=== PATIENT | female | born 1960 | race Caucasian/White ===

== ENCOUNTER 2016-05-09 19:44 | Inpatient (IN) | payer MEDICAID ==
[~2016-05-09] VITALS: Ht 157.5 cm; Wt 143.8 kg
[~2016-05-09 19:44] MED LIST: CLON2TAB4 PO; CLOT15CR35 TP; Hydrochlorothiazide PO; INSU100V28 SQ; LEVO750T21 PO; NPH,100V2 SQ; VALS40TA4 PO; VENL75TA4 PO
[2016-05-09] MEDS ORDERED: PIPERACILLIN /TAZOBACTAM 3.375 G VIAL IV ONE (23:50)
[2016-05-09] MEDS ORDERED: VANCOMYCIN 1 GM VIAL ONE (23:50)
[2016-05-09] MEDS ORDERED: IV SET PRIMARY PUMP SET 1 EA INFUS.SET MC ONE (23:51)
[2016-05-09] MEDS ORDERED: IV D5W 50 ML IV ONE (23:51)
[2016-05-09] MEDS ORDERED: IV D5W 250 ML IV ONE (23:51)
[2016-05-09] MEDS ORDERED: LORAZEPAM INJ 2 MG/ML VIAL ONE (23:52)
[2016-05-10] MEDS ORDERED: PIPERACILLIN /TAZOBACTAM 3.375 G in IV D5W 50 ML IV ONE ×2
[2016-05-10] MEDS ORDERED: LORAZEPAM INJ 2 MG/ML VIAL IV ONE
[2016-05-10] MEDS ORDERED: VANCOMYCIN 1 GM in IV D5W 250 ML IV ONE ×2
[2016-05-10 00:32] LABS: CALCIUM, SERUM 8.6 mg/dL (8.5-10.1); CREATININE 1.5 mg/dL (0.6-1.3); POTASSIUM 4.8 mmol/L (3.5-5.1)
[2016-05-10 00:36] LABS: BASOPHILS # (AUTO) 0.1 /CMM (0.0-0.2); BASOPHILS % (AUTO) 0.5 % (0.0-2.0); DIFF TOTAL % 100 %; EOSINOPHILS # (AUTO) 0.5 /CMM (0.0-0.7); EOSINOPHILS % (AUTO) 3.9 % (0.0-6.0); HEMATOCRIT 31 % (33-45); HEMOGLOBIN 10.3 g/dL (11.5-14.8); LYMPHOCYTES # (AUTO) 2.8 /CMM (0.8-4.8); LYMPHOCYTES % (AUTO) 23.3 % (20.0-44.0); MEAN CORPUSCULAR HEMOGLOBIN 28 PG (26.0-33.0); MEAN CORPUSCULAR HGB CONC 33 g/dl (31.0-36.0); MEAN CORPUSCULAR VOLUME 86 fL (82-100); MONOCYTES # (AUTO) 0.7 /CMM (0.1-1.30); MONOCYTES % (AUTO) 5.9 % (2.0-12.0); NEUTROPHILS # (AUTO) 7.9 /CMM (1.8-8.9); NEUTROPHILS % (AUTO) 66.4 % (43.0-81.0); PLATELET COUNT (AUTO) 385 /CMM (150-450); RED BLOOD CELL COUNT(AUTO) 3.62 MIL/uL (4.0-5.2); WHITE BLOOD COUNT (AUTO) 11.9 K/uL (4.3-11.0)
[2016-05-10] MEDS ORDERED: IV NS 0.9% 1,000 ML BAG IV ONE (01:00)
[2016-05-10] MEDS ORDERED: LEVOFLOXACIN 750 MG /D5W 150ML 750 MG in PREMIX 1 EA IV SCH (01:00)
[2016-05-10] MEDS ORDERED: IV NS 0.9% 1,000 ML IV PRN (01:13)
[2016-05-10] MEDS ORDERED: DEXTROSE 50%-WATER 50 ML DISP.SYRIN IV PRN (01:30)
[2016-05-10] MEDS ORDERED: ENOXAPARIN SODIUM 40 MG/0.4 ML DISP.SYRIN SQ SCH (01:30)
[2016-05-10] MEDS ORDERED: ZOLPIDEM TARTRATE 5 MG TABLET PO PRN (01:30)
[2016-05-10] MEDS ORDERED: MAGNESIUM HYDROXIDE 30 ML UDC PO PRN (01:30)
[2016-05-10] MEDS ORDERED: ONDANSETRON HCL/PF 4 MG/2 ML VIAL IVP PRN (01:30)
[2016-05-10] MEDS ORDERED: ACETAMINOPHEN 325 MG TABLET PO PRN (01:30)
[2016-05-10] MEDS ORDERED: HYDROCODONE/APAP 5/325MG 1 EACH TABLET PO PRN (01:30)
[2016-05-10] MEDS ORDERED: MORPHINE SULFATE INJ 2 MG/ML DISP.SYRIN IV PRN (01:30)
[2016-05-10] MEDS ORDERED: Z GUARD REMEDY 2 OZ OINT TP PRN (01:30)
[2016-05-10] MEDS ORDERED: MAG HYDROX/AL HYDROX/SIMETH 30 ML UDC PO PRN (01:30)
[2016-05-10 01:31] VITALS: BP 106/44
[2016-05-10] MEDS ORDERED: ENOXAPARIN SODIUM 40 MG/0.4 ML DISP.SYRIN SQ ONE (01:36)
[2016-05-10] MEDS: BLOOD SUGAR DIAGNOSTIC 1 EACH STRIP VI SCH ×4 (05:27→22:12)
[2016-05-10 08:00] VITALS: BP_SYST 143; BP_SYST 154; BP_DIAS 62; BP_DIAS 87
[2016-05-10] MEDS ORDERED: INSULIN REGULAR, HUMAN 100 UNIT/ML 3 ML VIAL SQ SCH ×2 (08:00→18:00)
[2016-05-10] MEDS ORDERED: HYDROGEL DRESSING 90 GM TUBE TP PRN (08:30)
[2016-05-10] MEDS ORDERED: FEE PK DOSING 1 MIN EA MC ONE (09:14)
[2016-05-10] MEDS: VALSARTAN 40 MG TABLET PO SCH (09:32)
[2016-05-10] MEDS: PANTOPRAZOLE 40 MG TABLET.DR PO SCH (09:32)
[2016-05-10] MEDS: clonazePAM 0.5 MG TABLET PO SCH ×3 (09:36→16:37)
[2016-05-10] MEDS: CLOTRIMAZOLE 1% 15 GM TUBE TP SCH ×2 (09:37→16:45)
[2016-05-10] MEDS: VENLAFAXINE 37.5 MG TABLET PO SCH ×2 (09:37→16:37)
[2016-05-10] MEDS: HYDROGEL DRESSING 90 GM TUBE TP SCH (09:37)
[2016-05-10] MEDS: CADEXOMER IODINE 40 GM TUBE TP SCH (09:37)
[2016-05-10] MEDS: INSULIN NPH, HUMAN ISOPHANE 100 UNIT/ML VIAL SQ SCH ×2 (09:47→16:49)
[2016-05-10 10:00] VITALS: BP 143/62
[2016-05-10] MEDS: INSULIN REGULAR, HUMAN 100 UNIT/ML 3 ML VIAL SQ PRN (12:11)
[2016-05-10] MEDS ORDERED: FLU VACC QS 2016-17(36MOS+)/PF 0.5 ML DISP.SYRIN IM ONE (14:30)
[2016-05-10 16:00] VITALS: BP 147/64
[2016-05-10 19:26] LABS: KETONES,URINE NEGATIVE (NEGATIVE); LEUKOCYTE ESTERASE ,URINE NEGATIVE (NEGATIVE)
[2016-05-10 19:29] LABS: ADD UA MICROSCOPIC YES
[2016-05-10 19:35] LABS: CREATININE, URINE 60.4 MG/DL (30.0-125.0)
[2016-05-10 20:00] VITALS: BP 123/57
[2016-05-10 20:15] LABS: ADD URINE CULTURE NO; WBC,URINE 0-2 /HPF (0-3)
[2016-05-10] MEDS ORDERED: LEVOFLOXACIN (500MG) 500 MG TABLET PO SCH (20:30)
[2016-05-10] MEDS ORDERED: LEVOFLOXACIN (500MG) 500 MG TABLET PO ONE (21:00)
[2016-05-10] MEDS: METRONIDAZOLE 500 MG TABLET PO SCH (21:16)
[2016-05-10] MEDS: ENOXAPARIN SODIUM 40 MG/0.4 ML DISP.SYRIN SQ SCH (21:17)
[2016-05-10] MEDS: *INSULIN REGULAR(HUMULIN R)HUM 100 UNIT/ML VIAL SQ PRN (22:37)
[2016-05-10] MEDS: VANCOMYCIN 1.25 GM in IV D5W 500 ML IV SCH (23:41)
[2016-05-10] MEDS ORDERED: SECONDARY IV SET 1 EA INFUS.SET MC ONE (23:48)
[2016-05-11] MEDS: METRONIDAZOLE 500 MG TABLET PO SCH ×3 (04:35→21:05)
[2016-05-11] MEDS: BLOOD SUGAR DIAGNOSTIC 1 EACH STRIP VI SCH ×4 (06:55→21:15)
[2016-05-11 07:23] LABS: BASOPHILS # (AUTO) 0.1 /CMM (0.0-0.2); BASOPHILS % (AUTO) 0.5 % (0.0-2.0); DIFF TOTAL % 100 %; EOSINOPHILS # (AUTO) 0.5 /CMM (0.0-0.7); EOSINOPHILS % (AUTO) 4.8 % (0.0-6.0); HEMATOCRIT 27 % (33-45); HEMOGLOBIN 8.9 g/dL (11.5-14.8); LYMPHOCYTES # (AUTO) 2.5 /CMM (0.8-4.8); LYMPHOCYTES % (AUTO) 25.2 % (20.0-44.0); MEAN CORPUSCULAR HEMOGLOBIN 29 PG (26.0-33.0); MEAN CORPUSCULAR HGB CONC 33 g/dl (31.0-36.0); MEAN CORPUSCULAR VOLUME 86 fL (82-100); MONOCYTES # (AUTO) 0.6 /CMM (0.1-1.30); MONOCYTES % (AUTO) 6.2 % (2.0-12.0); NEUTROPHILS # (AUTO) 6.2 /CMM (1.8-8.9); NEUTROPHILS % (AUTO) 63.3 % (43.0-81.0); PLATELET COUNT (AUTO) 324 /CMM (150-450); RED BLOOD CELL COUNT(AUTO) 3.08 MIL/uL (4.0-5.2); WHITE BLOOD COUNT (AUTO) 9.8 K/uL (4.3-11.0)
[2016-05-11 07:30] LABS: ALBUMIN 1.9 g/dL (3.4-5.0); BILIRUBIN,TOTAL 0.2 mg/dL (0.2-1.0); CALCIUM, SERUM 8.1 mg/dL (8.5-10.1); CREATININE 1.6 mg/dL (0.6-1.3); PHOSPHORUS 5.2 mg/dL (2.5-4.9); POTASSIUM 4.8 mmol/L (3.5-5.1); TOTAL PROTEIN, SERUM 6.2 g/dL (6.4-8.2)
[2016-05-11 08:00] VITALS: BP_SYST 140; BP_SYST 175; BP_DIAS 52; BP_DIAS 76
[2016-05-11] MEDS: clonazePAM 0.5 MG TABLET PO SCH ×2 (08:24→12:00)
[2016-05-11] MEDS: ACIDOPHILUS/BULGARICUS 1 EACH TAB.CHEW PO SCH ×3 (08:25→18:02)
[2016-05-11] MEDS: PANTOPRAZOLE 40 MG TABLET.DR PO SCH (08:25)
[2016-05-11] MEDS: VALSARTAN 40 MG TABLET PO SCH (08:25)
[2016-05-11] MEDS: HYDROCHLOROTHIAZIDE 25 MG TABLET PO SCH (08:25)
[2016-05-11] MEDS: CADEXOMER IODINE 40 GM TUBE TP SCH (08:25)
[2016-05-11] MEDS: HYDROGEL DRESSING 90 GM TUBE TP SCH (08:25)
[2016-05-11] MEDS: VENLAFAXINE 37.5 MG TABLET PO SCH ×2 (08:25→18:02)
[2016-05-11] MEDS: CLOTRIMAZOLE 1% 15 GM TUBE TP SCH ×2 (08:26→18:02)
[2016-05-11] MEDS: INSULIN NPH, HUMAN ISOPHANE 100 UNIT/ML VIAL SQ SCH ×3 (08:33→18:12)
[2016-05-11 10:00] VITALS: BP 175/76
[2016-05-11] MEDS: INSULIN REGULAR, HUMAN 100 UNIT/ML 3 ML VIAL SQ PRN (12:22)
[2016-05-11 16:00] VITALS: BP 165/78
[2016-05-11 20:00] VITALS: BP 155/73
[2016-05-11] MEDS: MUPIROCIN OINT 2% 22 GM TUBE SCH (21:00)
[2016-05-11] MEDS: LEVOFLOXACIN (250MG) 250 MG TABLET PO SCH (21:05)
[2016-05-11] MEDS: ENOXAPARIN SODIUM 40 MG/0.4 ML DISP.SYRIN SQ SCH (21:14)
[2016-05-11] MEDS: *INSULIN REGULAR(HUMULIN R)HUM 100 UNIT/ML VIAL SQ PRN (21:26)
[2016-05-12] MEDS: VANCOMYCIN 1.25 GM in IV D5W 500 ML IV SCH (00:07)
[2016-05-12 01:11] VITALS: BP 155/73
[2016-05-12] MEDS: METRONIDAZOLE 500 MG TABLET PO SCH ×3 (05:10→21:09)
[2016-05-12 06:19] LABS: CALCIUM, SERUM 8.3 mg/dL (8.5-10.1); CREATININE 1.7 mg/dL (0.6-1.3); POTASSIUM 4.9 mmol/L (3.5-5.1)
[2016-05-12] MEDS: PANTOPRAZOLE 40 MG TABLET.DR PO SCH ×2 (07:29→09:18)
[2016-05-12] MEDS: BLOOD SUGAR DIAGNOSTIC 1 EACH STRIP VI SCH ×4 (07:43→21:16)
[2016-05-12 08:00] VITALS: BP 148/59
[2016-05-12] MEDS: MUPIROCIN OINT 2% 22 GM TUBE SCH ×3 (09:00→21:09)
[2016-05-12] MEDS: VALSARTAN 40 MG TABLET PO SCH ×2 (09:00→17:51)
[2016-05-12] MEDS: ACIDOPHILUS/BULGARICUS 1 EACH TAB.CHEW PO SCH ×3 (09:18→17:51)
[2016-05-12] MEDS: HYDROCHLOROTHIAZIDE 25 MG TABLET PO SCH (09:18)
[2016-05-12] MEDS: VENLAFAXINE 37.5 MG TABLET PO SCH ×2 (09:18→17:51)
[2016-05-12] MEDS: HYDROGEL DRESSING 90 GM TUBE TP SCH (09:22)
[2016-05-12] MEDS: CLOTRIMAZOLE 1% 15 GM TUBE TP SCH ×2 (09:22→17:52)
[2016-05-12] MEDS: CADEXOMER IODINE 40 GM TUBE TP SCH (09:22)
[2016-05-12 11:34] LABS: *SPE ALBUMIN 2.1 g/dL (2.9-4.4)
[2016-05-12] MEDS: INSULIN REGULAR, HUMAN 100 UNIT/ML 3 ML VIAL SQ PRN (12:47)
[2016-05-12] MEDS: INSULIN NPH, HUMAN ISOPHANE 100 UNIT/ML VIAL SQ SCH ×2 (12:55→21:54)
[2016-05-12 16:00] VITALS: BP 148/61
[2016-05-12 16:13] LABS: PTH, INTACT 55 pg/mL (15-65)
[2016-05-12 20:00] VITALS: BP 123/63
[2016-05-12 20:15] VITALS: BP 123/63
[2016-05-12] MEDS: LEVOFLOXACIN (250MG) 250 MG TABLET PO SCH (21:09)
[2016-05-12] MEDS: ENOXAPARIN SODIUM 40 MG/0.4 ML DISP.SYRIN SQ SCH (21:15)
[2016-05-12] MEDS: *INSULIN REGULAR(HUMULIN R)HUM 100 UNIT/ML VIAL SQ PRN (21:21)
[2016-05-13] MEDS: VANCOMYCIN 1.25 GM in IV D5W 500 ML IV SCH (01:49)
[2016-05-13] MEDS: METRONIDAZOLE 500 MG TABLET PO SCH ×3 (04:49→21:18)
[2016-05-13 06:54] LABS: CALCIUM, SERUM 8.3 mg/dL (8.5-10.1); CREATININE 1.6 mg/dL (0.6-1.3); POTASSIUM 4.3 mmol/L (3.5-5.1)
[2016-05-13 08:00] VITALS: BP 123/56
[2016-05-13] MEDS: BLOOD SUGAR DIAGNOSTIC 1 EACH STRIP VI SCH ×4 (08:11→21:16)
[2016-05-13] MEDS: VENLAFAXINE 37.5 MG TABLET PO SCH ×2 (08:11→17:11)
[2016-05-13] MEDS: ACIDOPHILUS/BULGARICUS 1 EACH TAB.CHEW PO SCH ×3 (08:12→17:11)
[2016-05-13] MEDS: VALSARTAN 40 MG TABLET PO SCH (08:12)
[2016-05-13] MEDS: HYDROCHLOROTHIAZIDE 25 MG TABLET PO SCH (08:13)
[2016-05-13] MEDS: INSULIN NPH, HUMAN ISOPHANE 100 UNIT/ML VIAL SQ SCH ×2 (08:17→17:15)
[2016-05-13] MEDS: CLOTRIMAZOLE 1% 15 GM TUBE TP SCH ×2 (08:21→17:16)
[2016-05-13] MEDS: MUPIROCIN OINT 2% 22 GM TUBE SCH ×2 (08:21→21:26)
[2016-05-13] MEDS: CADEXOMER IODINE 40 GM TUBE TP SCH (08:21)
[2016-05-13] MEDS: HYDROGEL DRESSING 90 GM TUBE TP SCH (08:22)
[2016-05-13] MEDS ORDERED: IV SET PRIMARY PUMP SET 1 EA INFUS.SET MC ONE (09:54)
[2016-05-13] MEDS ORDERED: IV NS 0.9% 1,000 ML BAG IV PRN (10:00)
[2016-05-13] MEDS ORDERED: IV NS 0.9% 1,000 ML IV PRN (10:30)
[2016-05-13] MEDS ORDERED: IV NS 0.9% 250 ML IV ONE (12:27)
[2016-05-13] MEDS ORDERED: IOHEXOL-350 100 ML VIAL IV ONE (12:27)
[2016-05-13] MEDS ORDERED: CT SWABBABLE VALVE TRANS SET 1 EA INFUS.SET MC ONE (12:27)
[2016-05-13 16:00] VITALS: BP 124/52
[2016-05-13] MEDS: INSULIN REGULAR, HUMAN 100 UNIT/ML 3 ML VIAL SQ PRN (17:14)
[2016-05-13 20:00] VITALS: BP 136/59
[2016-05-13 20:43] VITALS: BP 136/59
[2016-05-13] MEDS: LEVOFLOXACIN (250MG) 250 MG TABLET PO SCH (21:18)
[2016-05-13] MEDS: ENOXAPARIN SODIUM 40 MG/0.4 ML DISP.SYRIN SQ SCH (21:43)
[2016-05-14] MEDS: METRONIDAZOLE 500 MG TABLET PO SCH ×3 (05:11→21:31)
[2016-05-14 06:24] LABS: CALCIUM, SERUM 8.3 mg/dL (8.5-10.1); CREATININE 1.6 mg/dL (0.6-1.3); POTASSIUM 4.2 mmol/L (3.5-5.1)
[2016-05-14] MEDS: BLOOD SUGAR DIAGNOSTIC 1 EACH STRIP VI SCH ×4 (06:31→21:52)
[2016-05-14 08:00] VITALS: BP 133/58
[2016-05-14] MEDS: INSULIN NPH, HUMAN ISOPHANE 100 UNIT/ML VIAL SQ SCH ×2 (09:00→18:16)
[2016-05-14] MEDS: PANTOPRAZOLE 40 MG TABLET.DR PO SCH (09:07)
[2016-05-14] MEDS: ACIDOPHILUS/BULGARICUS 1 EACH TAB.CHEW PO SCH ×3 (09:07→16:23)
[2016-05-14] MEDS: MUPIROCIN OINT 2% 22 GM TUBE SCH ×2 (09:08→21:32)
[2016-05-14] MEDS: CADEXOMER IODINE 40 GM TUBE TP SCH (09:08)
[2016-05-14] MEDS: VENLAFAXINE 37.5 MG TABLET PO SCH ×2 (09:08→16:23)
[2016-05-14] MEDS: HYDROGEL DRESSING 90 GM TUBE TP SCH (09:08)
[2016-05-14] MEDS: CLOTRIMAZOLE 1% 15 GM TUBE TP SCH ×2 (09:09→16:23)
[2016-05-14] MEDS ORDERED: FLU VACC QS 2016-17(36MOS+)/PF 0.5 ML DISP.SYRIN IM ONE (11:30)
[2016-05-14 16:00] VITALS: BP 146/54
[2016-05-14 16:45] VITALS: BP 146/54
[2016-05-14] MEDS ORDERED: SECONDARY IV SET 1 EA INFUS.SET MC ONE (16:56)
[2016-05-14] MEDS: VANCOMYCIN 1 GM in IV D5W 250 ML IV SCH (17:03)
[2016-05-14 20:00] VITALS: BP 146/66
[2016-05-14] MEDS: LEVOFLOXACIN (250MG) 250 MG TABLET PO SCH (21:31)
[2016-05-14] MEDS: ENOXAPARIN SODIUM 40 MG/0.4 ML DISP.SYRIN SQ SCH (21:35)
[2016-05-14] MEDS: *INSULIN REGULAR(HUMULIN R)HUM 100 UNIT/ML VIAL SQ PRN (21:57)
[2016-05-15] MEDS: BLOOD SUGAR DIAGNOSTIC 1 EACH STRIP VI SCH ×4 (05:33→21:49)
[2016-05-15] MEDS: METRONIDAZOLE 500 MG TABLET PO SCH ×3 (05:33→21:40)
[2016-05-15 06:46] LABS: CALCIUM, SERUM 8.2 mg/dL (8.5-10.1); CREATININE 1.8 mg/dL (0.6-1.3); POTASSIUM 4.3 mmol/L (3.5-5.1)
[2016-05-15 08:00] VITALS: BP 145/65
[2016-05-15] MEDS ORDERED: VANCOMYCIN 1.25 GM in IV D5W 500 ML IV SCH (09:00)
[2016-05-15] MEDS: ACIDOPHILUS/BULGARICUS 1 EACH TAB.CHEW PO SCH ×3 (09:06→17:44)
[2016-05-15] MEDS: VENLAFAXINE 37.5 MG TABLET PO SCH ×2 (09:06→17:45)
[2016-05-15] MEDS: PANTOPRAZOLE 40 MG TABLET.DR PO SCH (09:06)
[2016-05-15] MEDS: INSULIN NPH, HUMAN ISOPHANE 100 UNIT/ML VIAL SQ SCH ×2 (09:09→17:50)
[2016-05-15] MEDS: MUPIROCIN OINT 2% 22 GM TUBE SCH ×2 (09:14→21:51)
[2016-05-15] MEDS: CADEXOMER IODINE 40 GM TUBE TP SCH (09:15)
[2016-05-15] MEDS: HYDROGEL DRESSING 90 GM TUBE TP SCH (09:15)
[2016-05-15] MEDS: CLOTRIMAZOLE 1% 15 GM TUBE TP SCH ×2 (09:16→17:47)
[2016-05-15] MEDS ORDERED: IV NS 0.9% 1,000 ML IV PRN (09:40)
[2016-05-15] MEDS: *INSULIN REGULAR(HUMULIN R)HUM 100 UNIT/ML VIAL SQ PRN ×2 (12:25→21:48)
[2016-05-15] MEDS: INSULIN REGULAR, HUMAN 100 UNIT/ML 3 ML VIAL SQ PRN ×2 (12:35→17:47)
[2016-05-15 16:00] VITALS: BP 140/66
[2016-05-15] MEDS: VANCOMYCIN 1 GM in IV D5W 250 ML IV SCH (19:00)
[2016-05-15 20:00] VITALS: BP 149/66
[2016-05-15] MEDS: ENOXAPARIN SODIUM 40 MG/0.4 ML DISP.SYRIN SQ SCH (21:48)
[2016-05-15] MEDS: LEVOFLOXACIN (250MG) 250 MG TABLET PO SCH (21:49)
[2016-05-16 02:16] LABS: VIT D, 25-HYDROXY 4.2 ng/mL (30.0-100.0)
[2016-05-16] MEDS: METRONIDAZOLE 500 MG TABLET PO SCH ×2 (05:52→13:00)
[2016-05-16 07:25] LABS: CALCIUM, SERUM 8.1 mg/dL (8.5-10.1); CREATININE 1.9 mg/dL (0.6-1.3); POTASSIUM 4.3 mmol/L (3.5-5.1)
[2016-05-16] MEDS: BLOOD SUGAR DIAGNOSTIC 1 EACH STRIP VI SCH ×3 (07:30→16:53)
[2016-05-16 08:00] VITALS: BP 143/75
[2016-05-16] MEDS: PANTOPRAZOLE 40 MG TABLET.DR PO SCH (09:01)
[2016-05-16] MEDS: ACIDOPHILUS/BULGARICUS 1 EACH TAB.CHEW PO SCH ×3 (09:01→16:31)
[2016-05-16] MEDS: VENLAFAXINE 37.5 MG TABLET PO SCH ×2 (09:01→16:31)
[2016-05-16] MEDS: INSULIN NPH, HUMAN ISOPHANE 100 UNIT/ML VIAL SQ SCH (09:03)
[2016-05-16] MEDS: CADEXOMER IODINE 40 GM TUBE TP SCH (09:08)
[2016-05-16] MEDS: CLOTRIMAZOLE 1% 15 GM TUBE TP SCH ×2 (09:08→16:53)
[2016-05-16] MEDS: HYDROGEL DRESSING 90 GM TUBE TP SCH (09:08)
[2016-05-16] MEDS: MUPIROCIN OINT 2% 22 GM TUBE SCH (09:08)
[2016-05-16] MEDS: INSULIN REGULAR, HUMAN 100 UNIT/ML 3 ML VIAL SQ PRN (13:32)
[2016-05-16 14:51] VITALS: BP 143/75
[2016-05-16 16:00] VITALS: BP 142/74
[2016-05-16] MEDS: VANCOMYCIN 1 GM in IV D5W 250 ML IV SCH (16:31)
[2016-05-16] MEDS ORDERED: ENOXAPARIN SODIUM 30 MG/0.3 ML DISP.SYRIN SQ SCH (21:00)
== END 2016-05-16 18:20 | disposition home health service (06) | DRG 344 ==
LOC: ER 19:45 → MEDSG2 05-10 00:34 → TELE2 05-16 14:05 → MEDSG2 05-16 14:06
PROVIDERS: ADMIT Internal Medicine; ATTEND Internal Medicine
DX: M86.8X7 Other osteomyelitis, ankle and foot (principal); N17.0 Acute kidney failure with tubular necrosis; L89.894 Pressure ulcer of other site, stage 4; I13.0 Hypertensive heart and chronic kidney disease with heart failure and stage 1 through stage 4 chronic kidney disease, or unspecified chronic kidney disease; E11.52 Type 2 diabetes mellitus with diabetic peripheral angiopathy with gangrene; E44.0 Moderate protein-calorie malnutrition; I50.9 Heart failure, unspecified; I27.2 Other secondary pulmonary hypertension; E11.21 Type 2 diabetes mellitus with diabetic nephropathy; L03.115 Cellulitis of right lower limb; L03.116 Cellulitis of left lower limb; E11.621 Type 2 diabetes mellitus with foot ulcer; E66.01 Morbid (severe) obesity due to excess calories; E11.22 Type 2 diabetes mellitus with diabetic chronic kidney disease; E11.65 Type 2 diabetes mellitus with hyperglycemia; G47.33 Obstructive sleep apnea (adult) (pediatric); Z83.3 Family history of diabetes mellitus; Z87.891 Personal history of nicotine dependence; L97.529 Non-pressure chronic ulcer of other part of left foot with unspecified severity; L98.9 Disorder of the skin and subcutaneous tissue, unspecified; Z68.43 Body mass index [BMI] 50.0-59.9, adult; Z22.322 Carrier or suspected carrier of Methicillin resistant Staphylococcus aureus; E88.09 Other disorders of plasma-protein metabolism, not elsewhere classified; I77.1 Stricture of artery; L97.519 Non-pressure chronic ulcer of other part of right foot with unspecified severity; E11.610 Type 2 diabetes mellitus with diabetic neuropathic arthropathy; N18.2 Chronic kidney disease, stage 2 (mild)
CPT/HCPCS: 36415; 71010-TC; 73630-TC; 73718-TC; 80048-TC; 80053-TC; 80202-TC; 81000-TC; 82306; 82550-TC; 82570-TC; 82652; 82962-TC; 83735-TC; 83970; 84100-TC; 84155; 84155-TC; 84165; 84300-TC; 85025-TC; 85652-TC; 86140-TC; 87081-TC; 93925-TC; A4216; A4606; A6248; A6402; A6403; C1751; J1650; J1815; J1956; J2060; J2543; J3370; J7030; J7050; J7060; Q2036; Q9967; Z7610

== ENCOUNTER 2017-03-12 19:36 | Inpatient (IN) | payer MEDICAID, MEDICARE ==
[~2017-03-12] VITALS: Ht 165.1 cm; Wt 165.6 kg
[2017-03-12 19:45] VITALS: BP 150/70
--- NOTE | 2017-03-12 20:12 | NUR ---
DR. VICENTE IS AT THE BEDSIDE. PT TOOK OFF BIPAP. PT PLACED ON 4L O2 VIA NC. 96%.
--- NOTE | 2017-03-12 20:22 | NUR ---
RT AT THE BEDSIDE. PT IS ON 4L O2 VIA NC. BIPAP REMOVED. DR. VICENTE IS AWARE.
[2017-03-12 20:26] LABS: BASOPHILS % (AUTO) 0.2 % (0.0-2.0); EOSINOPHILS # (AUTO) 0.2 /CMM (0.0-0.7); HEMATOCRIT 30 % (33-45); HEMOGLOBIN 9.6 g/dL (11.5-14.8); LYMPHOCYTES # (AUTO) 1.4 /CMM (0.8-4.8); LYMPHOCYTES % (AUTO) 15.4 % (20.0-44.0); MEAN CORPUSCULAR HEMOGLOBIN 26 PG (26.0-33.0); MEAN CORPUSCULAR HGB CONC 32 g/dl (31.0-36.0); MEAN CORPUSCULAR VOLUME 81 fL (82-100); MONOCYTES # (AUTO) 0.1 /CMM (0.1-1.30); MONOCYTES % (AUTO) 1.5 % (2.0-12.0); NEUTROPHILS # (AUTO) 7.2 /CMM (1.8-8.9); NEUTROPHILS % (AUTO) 80.9 % (43.0-81.0); PLATELET COUNT (AUTO) 401 /CMM (150-450); RDW COEFFICIENT OF VARIATION 16.9 (11.5-15.0); RED BLOOD CELL COUNT(AUTO) 3.72 MIL/uL (4.0-5.2); WHITE BLOOD COUNT (AUTO) 8.9 K/uL (4.3-11.0)
--- NOTE | 2017-03-12 20:54 | NUR ---
PT REFUSED ABG. DR. VICENTE IS AWARE.
--- NOTE | 2017-03-12 20:54 | NUR ---
Anshul shelton in EDM - 03/12/17 at 2158 by TEA PT REFUSED ABD. DR. VICENTE IS AWARE.
[2017-03-12 21:09] LABS: ALBUMIN 2.3 g/dL (3.4-5.0); BILIRUBIN,TOTAL 0.2 mg/dL (0.2-1.0); CALCIUM, SERUM 8.4 mg/dL (8.5-10.1); CREATININE 1.9 mg/dL (0.6-1.3); INR 0.93 (0.87-1.13); PROTHROMBIN TIME 9.7 SECS (9.5-12.7)
--- NOTE | 2017-03-12 21:09 | NUR ---
RT pt refused ABG. Dr García aware.
[2017-03-12 21:13] LABS: TROPONIN I 0.017 ng/mL (0.00-0.056)
[2017-03-12] MEDS ORDERED: FUROSEMIDE 40 MG/4 ML VIAL ONE (21:57)
[2017-03-12] MEDS ORDERED: FUROSEMIDE 40 MG/4 ML VIAL IV ONE (22:00)
--- NOTE | 2017-03-12 22:04 | NUR ---
REPORT GIVEN TO SRAVAN GRAHAM
--- NOTE | 2017-03-12 22:25 | NUR ---
CAR UNLOADER INITIAL NOTES PT ARRIVED TO UNIT VIA [place]. A/O X4. BREATHING SHALLOW ON RA, COMPLAINTS OF SOB MAINLY ON EXERTION. IV ACCESS IS INTACT AND PATENT. BILATERAL PITTING EDEMA NOTED. ABDOMEN IS DISTENDED. WOUNDS ON LEGS AND PT ALSO SAYS SHE HAS SOME ON HER BUTTOCKS. REFUSING ANY PICTURES ON HER BACK SIDE. CAN NOT BE LAID FLAT. ORDERS TO BE CARRIED. BED IS IN LOW AND LOCKED POSITION, CALL LIGHT WITHIN REACH. WILL CONTINUE TO MONITOR PT.
[2017-03-12] MEDS ORDERED: POTASSIUM CHLORIDE 20 MEQ TAB.PRT.SR PO ONE ×2 (22:30→22:50)
[2017-03-12] MEDS ORDERED: ENOXAPARIN SODIUM 40 MG/0.4 ML DISP.SYRIN SQ SCH (22:30)
[2017-03-12] MEDS ORDERED: ONDANSETRON HCL/PF 4 MG/2 ML VIAL IVP PRN (22:30)
[2017-03-12] MEDS ORDERED: BUMETANIDE INJ 4 MG in IV NS 0.9% 24 ML IV ONE (22:30)
[2017-03-12] MEDS ORDERED: DEXTROSE 50%-WATER 50 ML DISP.SYRIN IV PRN (22:30)
[2017-03-12] MEDS ORDERED: Z GUARD REMEDY 2 OZ OINT TP PRN (22:30)
[2017-03-12] MEDS ORDERED: ZOLPIDEM TARTRATE 5 MG TABLET PO PRN (22:30)
[2017-03-12] MEDS ORDERED: clonazePAM 1 MG TABLET PO PRN (22:30)
[2017-03-12] MEDS ORDERED: HYDROCODONE/APAP 10/325MG 1 EA TABLET PO PRN (22:30)
[2017-03-12] MEDS ORDERED: ACETAMINOPHEN 325 MG TABLET PO PRN (22:30)
[2017-03-12] MEDS ORDERED: ENOXAPARIN SODIUM 40 MG/0.4 ML DISP.SYRIN SQ ONE (22:48)
[2017-03-12] MEDS ORDERED: BUMETANIDE INJ 0.25 MG/ML VIAL ONE (22:49)
--- NOTE | 2017-03-12 23:20 | NUR ---
COMMUNITY ARTIST NOTES PT CONTINUING TO REFUSE SACRAL PICTURES
--- NOTE | 2017-03-12 23:40 | NUR ---
ONLINE PROGRAM COORDINATOR NOTES C-PAP ORDERED
[2017-03-13] VITALS (8 sets, daily range): BP systolic 104–145; BP diastolic 71–82
--- NOTE | 2017-03-13 00:46 | NUR ---
PLANT PRODUCTION MANAGER NOTES CARMONA CATHETER WAS ORDERED FOR PT
--- NOTE | 2017-03-13 07:30 | NUR ---
MS/RN Patient received Patient received from blooming mill supervisor. Currently on c-pap, saturating 97%, appears comfortable. All needs attended, call light within reach, will continue to monitor and ensure safety.
[2017-03-13] MEDS: ALBUTEROL FS 2.5 MG/3 ML VIAL.NEB NEB SCH ×4 (07:35→20:08)
[2017-03-13] MEDS: IPRATROPIUM NEB FS 0.5 MG/2.5 ML AMPUL.NEB NEB SCH ×4 (07:35→20:08)
[2017-03-13] MEDS: BLOOD SUGAR DIAGNOSTIC 1 EACH STRIP IN SCH ×4 (07:50→22:41)
--- NOTE | 2017-03-13 07:54 | NUR ---
CHARGING CAR OPERATOR NOTES PT IS IN BED SLEEPING, EASILY AROUSED. ON C-PAP. CONTINUES TO REFUSE FULL BODY ASSESSMENT. IV ACCESS IS INTACT AND PATENT. BED IS IN LOW AND LOCKED POSITION, CALL LIGHT WITHIN REACH. WILL ENDORSE TO DAYSHIFT.
[2017-03-13] MEDS: INSULIN REGULAR, HUMAN 100 UNIT/ML 3 ML VIAL SQ SCH ×3 (08:00→17:22)
[2017-03-13 08:21] LABS: BASOPHILS % (AUTO) 0.4 % (0.0-2.0); EOSINOPHILS # (AUTO) 0.3 /CMM (0.0-0.7); EOSINOPHILS % (AUTO) 2.6 % (0.0-6.0); HEMATOCRIT 31 % (33-45); HEMOGLOBIN 9.9 g/dL (11.5-14.8); LYMPHOCYTES # (AUTO) 2.1 /CMM (0.8-4.8); LYMPHOCYTES % (AUTO) 21.6 % (20.0-44.0); MEAN CORPUSCULAR HEMOGLOBIN 26 PG (26.0-33.0); MEAN CORPUSCULAR HGB CONC 32 g/dl (31.0-36.0); MEAN CORPUSCULAR VOLUME 81 fL (82-100); MONOCYTES # (AUTO) 0.5 /CMM (0.1-1.30); NEUTROPHILS # (AUTO) 6.9 /CMM (1.8-8.9); NEUTROPHILS % (AUTO) 70.4 % (43.0-81.0); PLATELET COUNT (AUTO) 378 /CMM (150-450); RDW COEFFICIENT OF VARIATION 17.5 (11.5-15.0); RED BLOOD CELL COUNT(AUTO) 3.78 MIL/uL (4.0-5.2); WHITE BLOOD COUNT (AUTO) 9.9 K/uL (4.3-11.0)
[2017-03-13 08:51] LABS: ALBUMIN 2.1 g/dL (3.4-5.0); BILIRUBIN,TOTAL 0.2 mg/dL (0.2-1.0); CALCIUM, SERUM 8.7 mg/dL (8.5-10.1); POTASSIUM 4.7 mmol/L (3.5-5.1); THYROID STIMULATING HORMONE 3.331 uIU/mL (0.358-3.74); TOTAL PROTEIN, SERUM 6.7 g/dL (6.4-8.2)
[2017-03-13] MEDS: INSULIN NPH, HUMAN ISOPHANE 100 UNIT/ML VIAL SQ SCH ×2 (09:00→17:23)
[2017-03-13] MEDS ORDERED: HYDROCHLOROTHIAZIDE 25 MG TABLET PO SCH (09:00)
[2017-03-13] MEDS ORDERED: VALSARTAN 40 MG TABLET PO SCH (09:00)
--- NOTE | 2017-03-13 09:15 | NUR ---
MS/RN Insulin dose Insulin dose clarified with patient -NPH 35 units at breakfast -NPH 45 units at bedtime -Regular insulin 10 units at 0900 and 1300, 13 units at bedtime.
[2017-03-13] MEDS ORDERED: LEVOFLOXACIN (500MG) 500 MG TABLET PO ONE (09:30)
[2017-03-13] MEDS: VENLAFAXINE 37.5 MG TABLET PO SCH (09:36)
--- NOTE | 2017-03-13 09:41 | NUR ---
MS/RN Medications Morning medications administered as ordered.
[2017-03-13] MEDS: CLOTRIMAZOLE 1% 15 GM TUBE TP SCH ×2 (09:58→17:22)
[2017-03-13] MEDS ORDERED: RIVAROXABAN 10 MG TABLET PO SCH (10:30)
--- NOTE | 2017-03-13 11:00 | NUR ---
MS/RN S/B Dr Scott Matson and lasix ordered (80mg X3).
--- NOTE | 2017-03-13 11:15 | NUR ---
MS/RN Refused PT Patient refused PT, asked to be taken off PT schedule.
[2017-03-13 11:22] LABS: THYROID STIMULATING HORMONE 3.212 uIU/mL (0.358-3.74)
--- NOTE | 2017-03-13 11:30 | NUR ---
MS/RN S/B Dr Nicholson Seen by Dr Nicholson - ricky wrote for c-pap at night.
[2017-03-13] MEDS: FUROSEMIDE 100 MG/10 ML VIAL IV SCH ×3 (11:39→20:38)
[2017-03-13] MEDS: DILTIAZEM HCL CD 240 MG PO SCH (11:39)
--- NOTE | 2017-03-13 11:50 | NUR ---
MS/RM Blood sugar Blood sugar 140, insulin coverage to be administered per sliding scale.
--- NOTE | 2017-03-13 11:58 | NUR ---
MS/RN Insulin non administer Insulin non administered as patient refusing to eat.
--- NOTE | 2017-03-13 12:22 | NUR ---
MS/RN Refused OT Patient refused OT evaluation.
--- NOTE | 2017-03-13 14:26 | NUR ---
MS/RN Lasix Second dose of 80mg lasix administered IVP. Blood pressure remains stable.
--- NOTE | 2017-03-13 15:17 | NUR ---
WOUND CARE CONSULT: PT REFUSES SKIN ASSESSMENT AND BARIATRIC BED. WILL SEE PRN. DEFER TO DPM FOR LOWER EXTREMITIES.
[2017-03-13] MEDS ORDERED: clonazePAM 1 MG TABLET PO PRN (16:00)
[2017-03-13] MEDS ORDERED: FERROUS SULFATE (325 MG) 325 MG/TAB TABLET PO SCH (17:00)
[2017-03-13] MEDS: RIVAROXABAN 15 MG TABLET PO SCH (17:23)
--- NOTE | 2017-03-13 17:41 | NUR ---
MS/RN Blood sugar Blood sugar at 5p 135, patient refused coverage.
--- NOTE | 2017-03-13 20:00 | NUR ---
RN NOTES RECEIVED PATIENT IN BED, ALERT AND ORIENTED X4, WITH EPISODE OF IRRITABILITY, NO RESPIRATORY DISTRESS, TOLERATING 4LPM VIA NC, SPO2 95%, DENIES ANY PAIN AT THIS TIME, REQUIRES HELP WITH TURNING DUE TO SHORTNESS OF BREATH. CARMONA CATHETER DRAINING WELL WITH CLEAR AND YELLOW URINE. NEEDS ATTENDED, CALL LIGHT WITHIN REACH.
--- NOTE | 2017-03-13 20:38 | NUR ---
RN NOTES LASIX 80 MG IVP NOT AVAILABLE IN OMNICELLE. NOTIFIED PHARMACY TO CHANGE TIME. WILL GIVE LASIX SCHEDULED FOR 2100
--- NOTE | 2017-03-13 20:44 | NUR ---
RN NOTES GIVEN REPORT TO YESSICA FOR CONTINUITY OF CARE.
--- NOTE | 2017-03-13 20:44 | NUR ---
TELE/RN ASSUMED CARE OF THIS PATIENT FOR CONTINUITY OF CARE. PATIENT IS AWAKE, ALERT, ORIENTED, COMFORTABLE, NO C/O PAIN, NO DISTRESS NOTED, CALL LIGHT IN REACH. PATIENT ALSO REFUSED U/S OF THE KIDNEYS PER U/S TECH. WILL MONITOR.
[2017-03-13] MEDS ORDERED: FUROSEMIDE 100 MG/10 ML VIAL IV SCH (21:00)
[2017-03-13] MEDS ORDERED: VITAMINS A AND D 56.7 GM TUBE TP PRN (22:00)
[2017-03-13] MEDS: *INSULIN REGULAR(HUMULIN R)HUM 100 UNIT/ML VIAL SQ PRN (22:39)
--- NOTE | 2017-03-14 06:54 | NUR ---
TELE/RN PATIENT STILL SLEEPING AT THIS TIME, EASILY AROUSABLE, COMFORTABLE, BIPAP ON, ALL NEEDS ATTENDED AT THIS TIME. WILL CONTINUE TO MONITOR.
[2017-03-14] MEDS: BLOOD SUGAR DIAGNOSTIC 1 EACH STRIP IN SCH ×4 (07:30→22:28)
--- NOTE | 2017-03-14 07:30 | NUR ---
RN OPENING NOTES RECEIVED PATIENT IN BED ASLEEP, RESPONSIVE. ON CPAP SATURATING 98%, APPEARS COMFORTABLE. NO ACUTE DISTRESS, NO SOB NOTED. DENIES PAIN OR DISCOMFORT. ENSURE SAFETY, CALL LIGHT IN REACH. WILL CONTINUE TO MONITOR ACCORDINGLY.
[2017-03-14 08:00] VITALS: BP 111/59
[2017-03-14] MEDS: INSULIN REGULAR, HUMAN 100 UNIT/ML 3 ML VIAL SQ SCH ×3 (08:00→17:31)
[2017-03-14 08:09] LABS: BASOPHILS % (AUTO) 0.5 % (0.0-2.0); EOSINOPHILS # (AUTO) 0.3 /CMM (0.0-0.7); EOSINOPHILS % (AUTO) 3.4 % (0.0-6.0); HEMATOCRIT 27 % (33-45); HEMOGLOBIN 8.7 g/dL (11.5-14.8); LYMPHOCYTES # (AUTO) 1.8 /CMM (0.8-4.8); LYMPHOCYTES % (AUTO) 23.9 % (20.0-44.0); MEAN CORPUSCULAR HEMOGLOBIN 26 PG (26.0-33.0); MEAN CORPUSCULAR HGB CONC 32 g/dl (31.0-36.0); MEAN CORPUSCULAR VOLUME 81 fL (82-100); MONOCYTES # (AUTO) 0.5 /CMM (0.1-1.30); MONOCYTES % (AUTO) 5.9 % (2.0-12.0); NEUTROPHILS # (AUTO) 5.1 /CMM (1.8-8.9); NEUTROPHILS % (AUTO) 66.3 % (43.0-81.0); PLATELET COUNT (AUTO) 355 /CMM (150-450); RDW COEFFICIENT OF VARIATION 18.3 (11.5-15.0); WHITE BLOOD COUNT (AUTO) 7.6 K/uL (4.3-11.0)
[2017-03-14 08:10] VITALS: BP 111/59
[2017-03-14 08:19] LABS: BILIRUBIN,TOTAL 0.2 mg/dL (0.2-1.0); CALCIUM, SERUM 8.4 mg/dL (8.5-10.1); CREATININE 2.1 mg/dL (0.6-1.3); MAGNESIUM 1.8 mg/dL (1.8-2.4); PHOSPHORUS 5.3 mg/dL (2.5-4.9); POTASSIUM 4.7 mmol/L (3.5-5.1); TOTAL PROTEIN, SERUM 6.3 g/dL (6.4-8.2)
[2017-03-14] MEDS: IPRATROPIUM NEB FS 0.5 MG/2.5 ML AMPUL.NEB NEB SCH ×4 (08:52→20:22)
[2017-03-14] MEDS: ALBUTEROL FS 2.5 MG/3 ML VIAL.NEB NEB SCH ×4 (08:52→20:22)
[2017-03-14] MEDS: CLOTRIMAZOLE 1% 15 GM TUBE TP SCH ×2 (09:00→17:10)
[2017-03-14] MEDS: INSULIN NPH, HUMAN ISOPHANE 100 UNIT/ML VIAL SQ SCH ×2 (09:00→17:31)
[2017-03-14] MEDS: DILTIAZEM HCL CD 240 MG PO SCH (09:47)
[2017-03-14] MEDS: VENLAFAXINE 37.5 MG TABLET PO SCH (09:48)
[2017-03-14] MEDS: LEVOFLOXACIN (250MG) 250 MG TABLET PO SCH (10:55)
[2017-03-14] MEDS: SOD FERRIC GLUC 125 MG in IV NS 0.9% 100 ML IV SCH (14:26)
[2017-03-14 16:00] VITALS: BP 116/64
--- NOTE | 2017-03-14 16:00 | NUR ---
RN NOTES REFUSED SKIN/WOUND ASSESSMENT.
--- NOTE | 2017-03-14 17:00 | NUR ---
RN NOTES BS 122, NO INSULIN COVERAGE
[2017-03-14] MEDS: RIVAROXABAN 15 MG TABLET PO SCH (17:08)
--- NOTE | 2017-03-14 19:30 | NUR ---
RN CLOSING NOTES PATIENT IN BED RESTING. NO ACUTE DISTRESS, NO SOB. DENIES PAIN OR DISCOMFORT. ALL NEEDS ATTENDED AND PROVIDED. SAFETY MEASURES IN PLACE. CALL LIGHT IN REACH. ENDORSED TO CLEAN UP SUPERVISOR RN FOR CRISTIAN.
--- NOTE | 2017-03-14 19:48 | NUR ---
RN NOTES RECEIVED PATIENT IN BED, LISTENING TO MUSIC THROUGH EARPHONES, NO SOB, NO RESPIRATORY DISTRESS, TOLERATING 4LPM VIA NC, SPO2 95%, DENIES ANY PAIN AT THIS TIME. NEEDS ATTENDED, CALL LIGHT WITHIN REACH.
[2017-03-14 20:00] VITALS: BP 111/66
--- NOTE | 2017-03-14 20:45 | NUR ---
RN NOTES PATIENT REFUSED SKIN ASSESSMENT, NOT WILLING TO MOVE AND TURN ON THE BED
[2017-03-14] MEDS: *INSULIN REGULAR(HUMULIN R)HUM 100 UNIT/ML VIAL SQ PRN (22:15)
[2017-03-15] MEDS: BLOOD SUGAR DIAGNOSTIC 1 EACH STRIP IN SCH ×4 (06:44→22:33)
[2017-03-15] MEDS: INSULIN REGULAR, HUMAN 100 UNIT/ML 3 ML VIAL SQ PRN (06:45)
--- NOTE | 2017-03-15 06:47 | NUR ---
RN NOTES PATIENT IS ALERT AND AWAKE, NO SOB, TOLERATING 4LPM VIA NC, SPO2 93%, DENIES ANY PAIN AT THIS TIME, SLEPT FOR 6 HOURS, COMPLIANT WITH CPAP, PER CHEMICAL ENGINEER REFUSING BED BATH AND REPOSITIONING. CHEMICAL ENGINEER OFFERED BED BATH X3, AT 22:00, 23:00 AND 0600. CARMONA CATHETER IS DRAINING WELL WITH YELLOW URINE. NEEDS ATTENDED, CALL LIGHT WITHIN REACH.
[2017-03-15 07:18] LABS: BASOPHILS % (AUTO) 0.6 % (0.0-2.0); EOSINOPHILS # (AUTO) 0.4 /CMM (0.0-0.7); EOSINOPHILS % (AUTO) 5.1 % (0.0-6.0); HEMATOCRIT 28 % (33-45); HEMOGLOBIN 8.8 g/dL (11.5-14.8); LYMPHOCYTES # (AUTO) 1.6 /CMM (0.8-4.8); LYMPHOCYTES % (AUTO) 20.1 % (20.0-44.0); MEAN CORPUSCULAR HEMOGLOBIN 26 PG (26.0-33.0); MEAN CORPUSCULAR HGB CONC 32 g/dl (31.0-36.0); MEAN CORPUSCULAR VOLUME 81 fL (82-100); MONOCYTES # (AUTO) 0.6 /CMM (0.1-1.30); MONOCYTES % (AUTO) 7.4 % (2.0-12.0); NEUTROPHILS # (AUTO) 5.3 /CMM (1.8-8.9); NEUTROPHILS % (AUTO) 66.8 % (43.0-81.0); PLATELET COUNT (AUTO) 345 /CMM (150-450); RDW COEFFICIENT OF VARIATION 17.8 (11.5-15.0); RED BLOOD CELL COUNT(AUTO) 3.43 MIL/uL (4.0-5.2); WHITE BLOOD COUNT (AUTO) 7.9 K/uL (4.3-11.0)
[2017-03-15 07:30] LABS: CALCIUM, SERUM 8.4 mg/dL (8.5-10.1); CREATININE 2.1 mg/dL (0.6-1.3); PHOSPHORUS 5.1 mg/dL (2.5-4.9); POTASSIUM 4.3 mmol/L (3.5-5.1)
[2017-03-15 08:00] VITALS: BP 115/63
--- NOTE | 2017-03-15 08:00 | NUR ---
RN OPENING NOTES: - patient awake, with continous O2 , with hay catheter draining yellow urine, denies pain , wants her breakfast now.
[2017-03-15] MEDS: IPRATROPIUM NEB FS 0.5 MG/2.5 ML AMPUL.NEB NEB SCH ×4 (08:03→19:37)
[2017-03-15] MEDS: ALBUTEROL FS 2.5 MG/3 ML VIAL.NEB NEB SCH ×4 (08:03→19:38)
[2017-03-15] MEDS: INSULIN REGULAR, HUMAN 100 UNIT/ML 3 ML VIAL SQ SCH ×3 (09:11→17:44)
[2017-03-15] MEDS: INSULIN NPH, HUMAN ISOPHANE 100 UNIT/ML VIAL SQ SCH ×2 (09:13→17:47)
[2017-03-15] MEDS: DILTIAZEM HCL CD 240 MG PO SCH (09:14)
[2017-03-15] MEDS: VENLAFAXINE 37.5 MG TABLET PO SCH (09:15)
[2017-03-15] MEDS: LEVOFLOXACIN (250MG) 250 MG TABLET PO SCH (09:15)
--- NOTE | 2017-03-15 13:18 | NUR ---
PATIENT COMFORTABLY SITTING ON HER WHEELCHAIR WITH CONTINOIUS O2 , NON-LABORED RESPIRATION, EATING LUNCH.
[2017-03-15] MEDS: SOD FERRIC GLUC 125 MG in IV NS 0.9% 100 ML IV SCH (14:50)
--- NOTE | 2017-03-15 15:05 | NUR ---
PT REFUSED ABG DRAW. RN NOTIFIED.
--- NOTE | 2017-03-15 15:18 | NUR ---
- Patient was refusing strongly the ABG, & Dr. Villa was making rounds at bedside, Md witnessed the refusal & talked to patient. Resp, therapist gave the PRN breathing treatment , & planned to apply mask due to low pulse OX.
--- NOTE | 2017-03-15 15:21 | NUR ---
Lotrimin cream was called again to pharmacy due to a missing dose.
[2017-03-15] MEDS: CLOTRIMAZOLE 1% 15 GM TUBE TP SCH ×2 (15:24→16:49)
--- NOTE | 2017-03-15 15:44 | NUR ---
Applied lotrimin, & patient claimed much better with the simple mask at 6l/min
[2017-03-15 16:00] VITALS: BP 116/55
[2017-03-15] MEDS: RIVAROXABAN 15 MG TABLET PO SCH (16:47)
--- NOTE | 2017-03-15 18:38 | NUR ---
RN CLOSING NOTES: - PATIENT IS STILL EATING DINNER SITTING AT EDGE OF BED & TOLERATING MEALS, , BUT WILL APPLY THE SIMPLE MASK AGAIN EXPLAINED BY RESPIRATORY THERAPIST SINCE PATIENT EASILY DESATURATE ON EXERTION. CARMONA CATHETER STILL IN DRAINING CLEAR YELLOW URINE.
--- NOTE | 2017-03-15 19:00 | NUR ---
RN OPENING NOTES RECEIVED REPORT FROM YUNG. PT SITTING ON SIDE OF BED. NO APPARENT S/S OF PAIN OR DISTRESS. PT COMPLAINTS OF SOB AT THIS TIME. PT ON 6L OF O2 VIA SIMPLE MASK. PT CARMONA CATHETER, CLEAN, INTACT AND DRAINING WELL. IV LEFT FOREARM #20, INTACT AND PATENT, SL. SAFETY PRECAUTIONS IN PLACE. BED IN LOW, LOCKED POSITION, 2X SIDERAILS UP. CALL LIGHT WITHIN REACH. WILL CONTINUE TO MONITOR.
[2017-03-15 20:00] VITALS: BP_SYST 120; BP_SYST 127; BP_DIAS 62; BP_DIAS 69
[2017-03-16] MEDS: BLOOD SUGAR DIAGNOSTIC 1 EACH STRIP IN SCH ×3 (07:32→17:36)
--- NOTE | 2017-03-16 07:34 | NUR ---
RN CLOSING NOTES NO SIGNIFICANT CHANGES OVERNIGHT. PT RESTING IN BED. NO APPARENT S/S OF PAIN OR DISTRESS. PT COMPLAINTS OF SOB AT THIS TIME. PT SLEPT WELL ON CPAP. DURING DAY PT ON 7-8L OF O2 VIA SIMPLE MASK PER RT. PT CARMONA CATHETER, CLEAN, INTACT AND DRAINING WELL. IV LEFT FOREARM #20, INTACT AND PATENT, SL. SAFETY PRECAUTIONS IN PLACE. BED IN LOW, LOCKED POSITION, 2X SIDERAILS UP. CALL LIGHT WITHIN REACH. WILL ENDORSE TO DAY SHIFT NURSE FOR CONTINUITY OF CARE.
[2017-03-16 08:00] VITALS: BP 145/70
[2017-03-16] MEDS: INSULIN REGULAR, HUMAN 100 UNIT/ML 3 ML VIAL SQ SCH ×3 (08:00→17:38)
[2017-03-16 08:04] LABS: CALCIUM, SERUM 8.5 mg/dL (8.5-10.1); CREATININE 2.5 mg/dL (0.6-1.3); MAGNESIUM 2.1 mg/dL (1.8-2.4); PHOSPHORUS 5.3 mg/dL (2.5-4.9); POTASSIUM 4.4 mmol/L (3.5-5.1)
--- NOTE | 2017-03-16 08:04 | NUR ---
RN NOTES RECEIVED PT. PT IS STABLE AND RESTING IN BED. A/OX4, NO C/O PAIN AT THIS TIME. PT BREATHING IS LABORED HOWEVER O2 SAT IS WNL WITH O2 MASK AT 7L. FC IN PLACE AND PATENT. IV ACCESS LOCATED ON LEFT FOREARM 20 G SL. PER GRANULATOR OPERATOR REPORT, PT REFUSED ABG ON 03/15. SAFETY MEASURES IN PLACE, CALL LIGHT WITHIN REACH. WILL CONTINUE TO MONITOR.
[2017-03-16 08:29] LABS: BASOPHILS % (AUTO) 0.2 % (0.0-2.0); EOSINOPHILS # (AUTO) 0.4 /CMM (0.0-0.7); EOSINOPHILS % (AUTO) 4.3 % (0.0-6.0); HEMATOCRIT 29 % (33-45); LYMPHOCYTES # (AUTO) 1.6 /CMM (0.8-4.8); MEAN CORPUSCULAR HEMOGLOBIN 26 PG (26.0-33.0); MEAN CORPUSCULAR HGB CONC 32 g/dl (31.0-36.0); MEAN CORPUSCULAR VOLUME 81 fL (82-100); MONOCYTES # (AUTO) 0.7 /CMM (0.1-1.30); MONOCYTES % (AUTO) 7.8 % (2.0-12.0); NEUTROPHILS # (AUTO) 6.1 /CMM (1.8-8.9); NEUTROPHILS % (AUTO) 69.7 % (43.0-81.0); PLATELET COUNT (AUTO) 353 /CMM (150-450); RDW COEFFICIENT OF VARIATION 18.6 (11.5-15.0); RED BLOOD CELL COUNT(AUTO) 3.54 MIL/uL (4.0-5.2); WHITE BLOOD COUNT (AUTO) 8.7 K/uL (4.3-11.0)
[2017-03-16] MEDS: VENLAFAXINE 37.5 MG TABLET PO SCH (08:38)
[2017-03-16] MEDS: DILTIAZEM HCL CD 240 MG PO SCH (08:38)
[2017-03-16] MEDS: ALBUTEROL FS 2.5 MG/3 ML VIAL.NEB NEB SCH ×3 (08:39→15:50)
[2017-03-16] MEDS: IPRATROPIUM NEB FS 0.5 MG/2.5 ML AMPUL.NEB NEB SCH ×3 (08:39→15:50)
[2017-03-16] MEDS: INSULIN NPH, HUMAN ISOPHANE 100 UNIT/ML VIAL SQ SCH ×2 (08:41→17:37)
[2017-03-16] MEDS: CLOTRIMAZOLE 1% 15 GM TUBE TP SCH ×2 (08:43→17:37)
[2017-03-16] MEDS: LEVOFLOXACIN (250MG) 250 MG TABLET PO SCH (09:56)
[2017-03-16] MEDS: INSULIN REGULAR, HUMAN 100 UNIT/ML 3 ML VIAL SQ PRN (12:30)
[2017-03-16] MEDS: SOD FERRIC GLUC 125 MG in IV NS 0.9% 100 ML IV SCH (15:20)
[2017-03-16 16:00] VITALS: BP 123/68
[2017-03-16] MEDS ORDERED: ALBUT2 NEB (16:09)
[2017-03-16] MEDS ORDERED: Rivaroxaban PO (16:09)
[2017-03-16] MEDS ORDERED: DILT240C88 PO (16:09)
[2017-03-16] MEDS: RIVAROXABAN 15 MG TABLET PO SCH (17:31)
--- NOTE | 2017-03-16 17:39 | NUR ---
RN NOTES REGULAR INSULIN HELD, NPH GIVEN DUE TO BS OF 116.
--- NOTE | 2017-03-16 19:44 | NUR ---
RN CLOSING NOTES PT TO BE D/C TO [facility]. D/C PAPERWORK AND EXITCARE SIGNED/COPIED. ENDORSED TO SCRIPT WRITER FOR CONTINUATION OF D/C.
--- NOTE | 2017-03-16 19:45 | NUR ---
RN OPENING NOTES RECEIVED REPORT FROM NEIDA. PT WILL BE DISCHARGED TO [facility]. PT RESTING IN BED, NO S/S OF PAIN OR DISTRESS. PT TOLERATING 8L O2 VIA SIMPLE MASK. WILL D/C CARMONA AND IV PRIOR TO DISCHARGE. WILL KEEP PT COMFORTABLE AND CALM. SAFETY PRECAUTIONS IN ORDER. CALL LIGHT WITHIN REACH.
--- NOTE | 2017-03-16 20:00 | NUR ---
EMS TRANSPORT ARRIVED ON THE UNIT. CARMONA D/C & IV D/C.
--- NOTE | 2017-03-16 20:06 | NUR ---
PT LEFT THE UNIT VIA GURNEY AT 2005. PT V/S ARE STABLE. ALL DISCHARGE PAPERWORK SIGNED, COPIED AND GIVEN TO PT. ENSURED THAT ALL PT BELONGINGS WERE TAKEN WITH PT. PT WILL BE TRANSPORTED TO [facility]. EMS CONFIRMED THAT THE FACILITY WILL BE ABLE TO ACCOMMODATE HER O2 NEED. VERIFIED CPAP SETTINGS.
== END 2017-03-16 20:07 | DRG 291 ==
LOC: ER 19:37 → TELE 21:52 → MED 03-14 11:37
PROVIDERS: ADMIT Nurse Practitioner Acute Care; ATTEND Nurse Practitioner Acute Care
PROC: 5A09357 Assistance with Respiratory Ventilation, Less than 24 Consecutive Hours, Continuous Positive Airway Pressure (ICD-10-PCS; principal; 2017-03-12)
DX: I13.0 Hypertensive heart and chronic kidney disease with heart failure and stage 1 through stage 4 chronic kidney disease, or unspecified chronic kidney disease (principal); J96.01 Acute respiratory failure with hypoxia; N17.0 Acute kidney failure with tubular necrosis; E43 Unspecified severe protein-calorie malnutrition; E11.22 Type 2 diabetes mellitus with diabetic chronic kidney disease; E11.42 Type 2 diabetes mellitus with diabetic polyneuropathy; D69.2 Other nonthrombocytopenic purpura; I50.33 Acute on chronic diastolic (congestive) heart failure; E66.2 Morbid (severe) obesity with alveolar hypoventilation; M86.9 Osteomyelitis, unspecified; Z68.44 Body mass index [BMI] 60.0-69.9, adult; N18.4 Chronic kidney disease, stage 4 (severe); J44.0 Chronic obstructive pulmonary disease with (acute) lower respiratory infection; J44.1 Chronic obstructive pulmonary disease with (acute) exacerbation; I27.20 Pulmonary hypertension, unspecified; Z90.49 Acquired absence of other specified parts of digestive tract; Z79.4 Long term (current) use of insulin; E11.51 Type 2 diabetes mellitus with diabetic peripheral angiopathy without gangrene; Z88.8 Allergy status to other drugs, medicaments and biological substances; Z79.899 Other long term (current) drug therapy; Z99.81 Dependence on supplemental oxygen; Z87.891 Personal history of nicotine dependence; Z83.3 Family history of diabetes mellitus; Z87.311 Personal history of (healed) other pathological fracture; L60.0 Ingrowing nail; L60.3 Nail dystrophy; Z89.429 Acquired absence of other toe(s), unspecified side; E11.69 Type 2 diabetes mellitus with other specified complication; I77.1 Stricture of artery; N18.2 Chronic kidney disease, stage 2 (mild); D50.9 Iron deficiency anemia, unspecified; I87.8 Other specified disorders of veins; G89.29 Other chronic pain; J20.9 Acute bronchitis, unspecified; I48.0 Paroxysmal atrial fibrillation
CPT/HCPCS: 36415; 71010-TC; 80048-TC; 80053-TC; 80061-TC; 80076-TC; 82306; 82728-TC; 82962-TC; 83540-TC; 83605-TC; 83735-TC; 83880; 84100-TC; 84439-TC; 84443-TC; 84484-TC; 85025-TC; 85378-TC; 85730-TC; 87040-TC; 87081-TC; 93307-TC; 93970-TC; 94799-TC; A4216; J1650; J1815; J1940; J2916; J3490; J7030; Z7610

== ENCOUNTER 2017-03-16 22:21 | Inpatient (IN) | payer MEDICARE ==
[~2017-03-16] VITALS: Ht 162.6 cm; Wt 153.3 kg
[~2017-03-16 22:21] MED LIST changes: +ALBUT2 NEB; +DILT240C88 PO; +Rivaroxaban PO
--- NOTE | 2017-03-16 22:25 | NUR ---
PT BIB RA FROM [facility] W/ A C/O SOB. PT ARRIVED ON SIMPLE MASK AT 10L. PT IS SITTING IN FULL FOWLERS. PT IS SITTING IN HIGH FOWLERS. PT IS AA7O X4. PT IS ON THE MONITOR AND CONTINUOUS PULSE OX.
[2017-03-16 22:38] LABS: BASOPHILS % (AUTO) 0.2 % (0.0-2.0); EOSINOPHILS # (AUTO) 0.4 /CMM (0.0-0.7); EOSINOPHILS % (AUTO) 3.1 % (0.0-6.0); HEMATOCRIT 28 % (33-45); HEMOGLOBIN 8.9 g/dL (11.5-14.8); LYMPHOCYTES # (AUTO) 1.7 /CMM (0.8-4.8); LYMPHOCYTES % (AUTO) 14.3 % (20.0-44.0); MEAN CORPUSCULAR HEMOGLOBIN 25 PG (26.0-33.0); MEAN CORPUSCULAR HGB CONC 31 g/dl (31.0-36.0); MEAN CORPUSCULAR VOLUME 81 fL (82-100); MONOCYTES # (AUTO) 0.7 /CMM (0.1-1.30); MONOCYTES % (AUTO) 6.2 % (2.0-12.0); NEUTROPHILS # (AUTO) 8.8 /CMM (1.8-8.9); NEUTROPHILS % (AUTO) 76.2 % (43.0-81.0); PLATELET COUNT (AUTO) 395 /CMM (150-450); RDW COEFFICIENT OF VARIATION 18.4 (11.5-15.0); RED BLOOD CELL COUNT(AUTO) 3.51 MIL/uL (4.0-5.2); WHITE BLOOD COUNT (AUTO) 11.6 K/uL (4.3-11.0)
--- NOTE | 2017-03-16 22:40 | NUR ---
XRAY AT THE BEDSIDE.
[2017-03-16 22:48] LABS: CALCIUM, SERUM 8.6 mg/dL (8.5-10.1); CARBON DIOXIDE 25 mmol/L (21-32); CHLORIDE 108 mmol/L (98-107); CREATININE 2.7 mg/dL (0.6-1.3); GLUCOSE 147 mg/dL (74-106); POTASSIUM 4.7 mmol/L (3.5-5.1); SODIUM SERUM 143 mmol/L (136-145); UREA NITROGEN, BLOOD 55 mg/dL (7-18)
[2017-03-16 22:58] LABS: TROPONIN I < 0.017 ng/mL (0.00-0.056)
[2017-03-16 23:01] LABS: INR 1.3 (0.87-1.13); PROTHROMBIN TIME 13.6 SECS (9.5-12.7)
[2017-03-16 23:03] LABS: ALANINE AMINOTRANSFERASE 15 U/L (12-78); ALBUMIN 2.3 g/dL (3.4-5.0); ALKALINE PHOSPHATASE 85 U/L (46-116); ASPARTATE AMINOTRANSFERASE 8 U/L (15-37); B-TYPE NATRIURETIC PEPTIDE 2144 PG/ML (0-125); BILIRUBIN,TOTAL 0.2 mg/dL (0.2-1.0); TOTAL PROTEIN, SERUM 6.8 g/dL (6.4-8.2)
--- NOTE | 2017-03-16 23:20 | NUR ---
RECEIVED REPORT FROM FRANSISCO IN ER. PT COMPLAINING OF SOB. PER EMS PT SAT 89% ON 10L SIMPLE MASK.
--- NOTE | 2017-03-16 23:57 | NUR ---
DR. KELLY AT THE BEDSIDE.
--- NOTE | 2017-03-17 00:05 | NUR ---
RN OPENING NOTES. PT ARRIVED ON TO UNIT VIA GURNEY FROM THE ER. PT CURRENTLY ON 9L OF O2, PT CURRENT O2 SAT 97. PT TOLERATING O2 WELL. NO APPARENT S/S OF PAIN OR DISTRESS. PT HAS A RIGHT HAND IV #20, INTACT AND PATENT. PT REORIENTED TO THE UNIT. SAFETY PRECAUTIONS IN PLACE. BED IN LOW, LOCKED POSITION, 2XSIDERAILS UP. CALL LIGHT WITHIN REACH. WILL CONTINUE TO MONITOR.
[2017-03-17 01:00] VITALS: BP 165/73
[2017-03-17] MEDS ORDERED: BUMETANIDE INJ 4 MG in IV D5W 34 ML IV ONE (01:00)
[2017-03-17] MEDS ORDERED: DEXTROSE 50%-WATER 50 ML DISP.SYRIN IV PRN (01:00)
[2017-03-17 01:17] LABS: IRON, SERUM 113 ug/dl (50-175); TOTAL IRON BINDING CAPACITY 387 ug/dl (250-450)
[2017-03-17 04:00] VITALS: BP_SYST 112; BP_DIAS 56; BP_DIAS 58
[2017-03-17] MEDS ORDERED: BUMETANIDE INJ 0.25 MG/ML VIAL ONE (04:27)
--- NOTE | 2017-03-17 04:47 | NUR ---
CHARGE NURSE LUCIE OVERRODE BUMEX ORDER, PHARMACY CLOSED AT TIME OF ADMINISTRATION.
[2017-03-17 06:00] VITALS: BP 132/73
--- NOTE | 2017-03-17 07:38 | NUR ---
RN CLOSING NOTES PT RESTING IN BED. PT CURRENTLY ON CPAP, PT TOLERATING WELL. NO APPARENT S/S OF PAIN OR DISTRESS. PT HAS A RIGHT HAND IV #20, INTACT AND PATENT. SAFETY PRECAUTIONS IN PLACE. BED IN LOW, LOCKED POSITION, 2XSIDERAILS UP. CALL LIGHT WITHIN REACH. WILL ENDORSE TO THE DAY SHIFT NURSE FOR CRISTIAN.
--- NOTE | 2017-03-17 07:52 | NUR ---
RN OPENING NOTE PATIENT RECEIVED IN BED IN STABLE CONDITION. A/O X 4. NO SIGNS OF ACUTE DISTRESS. NO COMPLAIN OF PAIN OR DISCOMFORT. ALL NEEDS ATTENDED TO. CALL LIGHT WITHIN REACH. WILL CONTINUE TO MONITOR TO ENSURE SAFETY.
[2017-03-17 08:00] VITALS: BP 132/73
[2017-03-17] MEDS: ALBUTEROL FS 2.5 MG/3 ML VIAL.NEB NEB SCH ×4 (08:17→19:25)
[2017-03-17] MEDS: BLOOD SUGAR DIAGNOSTIC 1 EACH STRIP VI SCH ×4 (08:32→22:00)
[2017-03-17] MEDS ORDERED: LEVOFLOXACIN (750 MG) 750 MG TABLET PO SCH (09:00)
[2017-03-17] MEDS: INSULIN NPH, HUMAN ISOPHANE 100 UNIT/ML VIAL SQ SCH ×2 (09:00→17:59)
[2017-03-17] MEDS: CLOTRIMAZOLE 1% 15 GM TUBE TP SCH ×2 (09:00→17:24)
[2017-03-17] MEDS ORDERED: VALSARTAN 40 MG TABLET PO SCH (09:00)
[2017-03-17] MEDS: DILTIAZEM HCL CD 240 MG PO SCH (09:17)
--- NOTE | 2017-03-17 09:59 | NUR ---
TELE/RN WAYNE Gomez NON ADMIN BS 96 AT 8:32AM AND PATIENT REFUSE TO EAT BREAKFAST THEREFORE WAYNE Gomez HELD
[2017-03-17] MEDS: LEVOFLOXACIN (500MG) 500 MG TABLET PO SCH (10:19)
[2017-03-17] MEDS: HYDROCHLOROTHIAZIDE 25 MG TABLET PO SCH (10:19)
[2017-03-17] MEDS: VENLAFAXINE 25 MG TABLET PO SCH ×2 (11:54→17:23)
[2017-03-17] MEDS: clonazePAM 1 MG TABLET PO SCH ×2 (12:00→17:24)
[2017-03-17] MEDS ORDERED: clonazePAM 2 MG TABLET PO SCH (12:00)
[2017-03-17 16:00] VITALS: BP 134/59
[2017-03-17] MEDS: RIVAROXABAN 15 MG TABLET PO SCH (17:22)
--- NOTE | 2017-03-17 18:15 | NUR ---
TELE/RN CLOSING NOTE PATIENT IN BED IN STABLE CONDITION. A/O X 4. NO SIGNS OF ACUTE DISTRESS. NO COMPLAIN OF PAIN OR DISCOMFORT. ON O2 @ 8LPM VIA MASK. SATURATION 95%. ENCOURAGE PATIENT TO USE NC, PATIENT REFUSE, SAID SHE FEELS COMFORTABLE WITH MASK. ALL NEEDS ATTENDED TO. CALL LIGHT WITHIN REACH. WILL ENDORSE TO NEXT SHIFT FOR CONTINUITY OF CARE.
--- NOTE | 2017-03-17 19:30 | NUR ---
Received patient in the bed.No unusual signs or symptoms observed or reported,no signs of discomfort or distress.Vital signs taken all are the normal range.F/C attached,draining clear,yellow urine into hay bag.On Simple Face Mask at 8L,tolerating well
[2017-03-17 20:00] VITALS: BP 129/62
[2017-03-17] MEDS: INSULIN REGULAR, HUMAN 100 UNIT/ML 3 ML VIAL SQ PRN (23:35)
[2017-03-18] VITALS (7 sets, daily range): BP systolic 121–151; BP diastolic 60–70
--- NOTE | 2017-03-18 00:05 | NUR ---
placed on BiPAP by RT, tolerating well
--- NOTE | 2017-03-18 04:05 | NUR ---
patient called to say that her BiPAP was not working well,tried to adjust but did not do a good job.Called RT.
[2017-03-18] MEDS: clonazePAM 1 MG TABLET PO SCH ×3 (06:25→17:26)
--- NOTE | 2017-03-18 06:26 | NUR ---
Refused Klonopin,saying she does not take it anymore
[2017-03-18] MEDS: *INSULIN REGULAR(HUMULIN R)HUM 100 UNIT/ML VIAL SQ PRN (06:45)
[2017-03-18] MEDS: BLOOD SUGAR DIAGNOSTIC 1 EACH STRIP VI SCH ×4 (06:46→22:07)
--- NOTE | 2017-03-18 07:35 | NUR ---
RN OPENING NOTES RECEIVED PT. IN BED A&OX4, PT. ON CPAP. BREATHING EVENLY AND UNLABORED ON OXYGEN VIA CPAP. PT. IS WEARING TELE MONITOR READING ATRIAL FIBRILLATION IN THE 70'S. NO S/S OF ACUTE DISTRESS. IV ACCESS ON RIGHT WRIST IS INTACT AND PATENT WITH SALINE FLUSH. CARMONA CATHETER HAS 100 CC OF CLEAR AND YELLOW URINE OUTPUT. BED IS IN LOWEST, AND LOCKED POSITION. 2 SIDE RAILS UP, AND INSTRUCTED PT. TO USE CALL LIGHT FOR ASSISTANCE. ALL NEEDS MET. WILL CONTINUE TO ASSESS AND MONITOR.
[2017-03-18 07:36] LABS: BASOPHILS % (AUTO) 0.6 % (0.0-2.0); EOSINOPHILS # (AUTO) 0.3 /CMM (0.0-0.7); EOSINOPHILS % (AUTO) 3.8 % (0.0-6.0); HEMATOCRIT 27 % (33-45); HEMOGLOBIN 8.6 g/dL (11.5-14.8); LYMPHOCYTES # (AUTO) 1.4 /CMM (0.8-4.8); LYMPHOCYTES % (AUTO) 18.6 % (20.0-44.0); MEAN CORPUSCULAR HEMOGLOBIN 26 PG (26.0-33.0); MEAN CORPUSCULAR HGB CONC 32 g/dl (31.0-36.0); MEAN CORPUSCULAR VOLUME 82 fL (82-100); MONOCYTES # (AUTO) 0.6 /CMM (0.1-1.30); NEUTROPHILS # (AUTO) 5.1 /CMM (1.8-8.9); PLATELET COUNT (AUTO) 343 /CMM (150-450); RDW COEFFICIENT OF VARIATION 18.5 (11.5-15.0); RED BLOOD CELL COUNT(AUTO) 3.29 MIL/uL (4.0-5.2); WHITE BLOOD COUNT (AUTO) 7.4 K/uL (4.3-11.0)
[2017-03-18 07:56] LABS: TROPONIN I < 0.017 ng/mL (0.00-0.056)
[2017-03-18 07:58] LABS: CHOLESTEROL 147 mg/dL (<200); CREATINE KINASE, TOTAL 117 U/L (26-192); HDL CHOLESTEROL 55 mg/dL (40-60); LDL 83 mg/dL (0-99); TRIGLYCERIDES 70 mg/dL (30-150)
[2017-03-18 07:59] LABS: ALANINE AMINOTRANSFERASE 15 U/L (12-78); ALBUMIN 2.1 g/dL (3.4-5.0); ALKALINE PHOSPHATASE 79 U/L (46-116); ASPARTATE AMINOTRANSFERASE 12 U/L (15-37); B-TYPE NATRIURETIC PEPTIDE 2778 PG/ML (0-125); BILIRUBIN,TOTAL 0.2 mg/dL (0.2-1.0); CALCIUM, SERUM 8.6 mg/dL (8.5-10.1); CARBON DIOXIDE 25 mmol/L (21-32); CHLORIDE 108 mmol/L (98-107); CREATININE 2.6 mg/dL (0.6-1.3); GLUCOSE 120 mg/dL (74-106); POTASSIUM 4.6 mmol/L (3.5-5.1); SODIUM SERUM 140 mmol/L (136-145); TOTAL PROTEIN, SERUM 6.5 g/dL (6.4-8.2); UREA NITROGEN, BLOOD 56 mg/dL (7-18)
[2017-03-18] MEDS: ALBUTEROL FS 2.5 MG/3 ML VIAL.NEB NEB SCH ×4 (08:00→19:48)
[2017-03-18] MEDS: DILTIAZEM HCL CD 240 MG PO SCH (09:43)
[2017-03-18] MEDS: LEVOFLOXACIN (500MG) 500 MG TABLET PO SCH (09:44)
[2017-03-18] MEDS: HYDROCHLOROTHIAZIDE 25 MG TABLET PO SCH (09:45)
[2017-03-18] MEDS: VENLAFAXINE 25 MG TABLET PO SCH ×2 (09:45→17:16)
[2017-03-18] MEDS: CLOTRIMAZOLE 1% 15 GM TUBE TP SCH ×2 (09:49→17:26)
[2017-03-18] MEDS: INSULIN NPH, HUMAN ISOPHANE 100 UNIT/ML VIAL SQ SCH ×2 (10:02→18:00)
[2017-03-18] MEDS: INSULIN REGULAR, HUMAN 100 UNIT/ML 3 ML VIAL SQ PRN (12:21)
--- NOTE | 2017-03-18 15:26 | NUR ---
PLACED PT. 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.
[2017-03-18] MEDS: MUPIROCIN OINT 2% 22 GM TUBE SCH (17:00)
--- NOTE | 2017-03-18 17:14 | NUR ---
BACTROBAN OINTMENT NOT READY FROM PHARMACY.
[2017-03-18] MEDS: FERROUS SULFATE (325 MG) 325 MG/TAB TABLET PO SCH (17:15)
[2017-03-18] MEDS: RIVAROXABAN 15 MG TABLET PO SCH (17:18)
--- NOTE | 2017-03-18 18:00 | NUR ---
RN NOTES MEDICATION NON ADMINISTRATION HELD PT.'S NOVOLG INSULIN 45 UNITS DUE TO PT.'S LAST BLOOD SUGAR CHECK AT 1730 WAS 104 MG/DL, AND PT. HAD A POOR APPETITE AT DINNER.
--- NOTE | 2017-03-18 19:35 | NUR ---
RN CLOSING NOTES PT. IN BED A&OX4. BREATHING EVENLY AND UNLABORED ON OXYGEN VIA MASK. PT. IS WEARING TELE MONITOR READING ATRIAL FIBRILLATION IN THE 70'S. NO S/S OF ACUTE DISTRESS. IV ACCESS ON RIGHT WRIST IS INTACT AND PATENT WITH SALINE FLUSH. CARMONA CATHETER HAD 475 CC OF CLEAR AND YELLOW URINE OUTPUT. BED IS IN LOWEST, AND LOCKED POSITION. 2 SIDE RAILS UP, AND INSTRUCTED PT. TO USE CALL LIGHT FOR ASSISTANCE. ALL NEEDS MET. WILL ENDORSE REPORT TO NURSE.
--- NOTE | 2017-03-18 19:38 | NUR ---
GERMAN INSTRUCTOR OPENING NOTES RECEIVED PT IN BED. A/O X4 ABLE TO MAKE NEEDS KNOWN. TELE MONITOR SHOWS AFIB 80'S. ON MASK 8L, BREATHING EVENLY AND UNLABORED. R WRIST IV ON SL. CARMONA CATHETER IN PLACE WITH 75 CC CLEAR AND YELLOW URINE IN THE BAG. BED IS IN LOW AND LOCKED POSITION, CALL LIGHT WITHIN REACH. WILL CONTINUE TO MONITOR PT
--- NOTE | 2017-03-18 21:00 | NUR ---
PT REFUSING BUTTOCKS PICS
[2017-03-19] VITALS: BP 151/66
[2017-03-19] MEDS: BLOOD SUGAR DIAGNOSTIC 1 EACH STRIP VI SCH ×4 (06:50→21:36)
[2017-03-19] MEDS: ALBUTEROL FS 2.5 MG/3 ML VIAL.NEB NEB SCH ×4 (07:23→20:26)
--- NOTE | 2017-03-19 07:23 | NUR ---
CABLE WEAVER CLOSING NOTES PT IS IN BED RESTING WITH CPAP ON. TELE MONITOR SHOWS CONTROLLED A FIB AT 82. CONTACT ISOLATION FOR MRSA NARES. NO ACUTE CHANGES DURING MY SHIFT. IV ACCESS IS INTACT AND PATENT. BED IS IN LOW AND LOCKED POSITION, CALL LIGHT WITHIN REACH. WILL ENDORSE TO DAY SHIFT.
[2017-03-19] MEDS: clonazePAM 1 MG TABLET PO SCH ×4 (07:30→16:44)
--- NOTE | 2017-03-19 07:30 | NUR ---
EDGER RUNNER AM NOTES PT IN BED. AA/O X4, ON O2 MASK AT 6-8 LPM, NOT IN ANY DISTRESS, NOS OB, RESPIRATION UNLABORED, TELEMETRY READS AFIB CONTROLLED, R WRIST G20 IVHL, FLUSHES WELL, SITE CLEAR. CARMONA CATHETER IN PLACE WITH 150 ML CLEAR AND YELLOW URINE. SEE NURSING FLOWSHEET FOR SKIN ISSUES. BEDBOUND, CARDIAC CCHO DIETBED LOW/LOCKED POSITION, CALL LIGHT WITHIN REACH. WILL CONTINUE TO MONITOR PT
[2017-03-19 07:58] LABS: CALCIUM, SERUM 8.6 mg/dL (8.5-10.1); CREATININE 2.4 mg/dL (0.6-1.3); POTASSIUM 4.5 mmol/L (3.5-5.1)
[2017-03-19 08:00] VITALS: BP 147/81
[2017-03-19 08:08] LABS: BASOPHILS % (AUTO) 0.5 % (0.0-2.0); EOSINOPHILS # (AUTO) 0.3 /CMM (0.0-0.7); HEMATOCRIT 28 % (33-45); HEMOGLOBIN 8.7 g/dL (11.5-14.8); LYMPHOCYTES # (AUTO) 1.2 /CMM (0.8-4.8); LYMPHOCYTES % (AUTO) 16.9 % (20.0-44.0); MEAN CORPUSCULAR HEMOGLOBIN 26 PG (26.0-33.0); MEAN CORPUSCULAR HGB CONC 32 g/dl (31.0-36.0); MEAN CORPUSCULAR VOLUME 82 fL (82-100); MONOCYTES # (AUTO) 0.5 /CMM (0.1-1.30); MONOCYTES % (AUTO) 7.4 % (2.0-12.0); NEUTROPHILS # (AUTO) 5.2 /CMM (1.8-8.9); NEUTROPHILS % (AUTO) 71.2 % (43.0-81.0); PLATELET COUNT (AUTO) 324 /CMM (150-450); RED BLOOD CELL COUNT(AUTO) 3.36 MIL/uL (4.0-5.2); WHITE BLOOD COUNT (AUTO) 7.3 K/uL (4.3-11.0)
[2017-03-19] MEDS: FERROUS SULFATE (325 MG) 325 MG/TAB TABLET PO SCH ×2 (08:54→16:44)
[2017-03-19] MEDS: VENLAFAXINE 25 MG TABLET PO SCH ×2 (08:54→16:43)
[2017-03-19] MEDS: LEVOFLOXACIN (500MG) 500 MG TABLET PO SCH (08:54)
[2017-03-19] MEDS: DILTIAZEM HCL CD 240 MG PO SCH (08:55)
[2017-03-19] MEDS: HYDROCHLOROTHIAZIDE 25 MG TABLET PO SCH (08:55)
[2017-03-19] MEDS: INSULIN NPH, HUMAN ISOPHANE 100 UNIT/ML VIAL SQ SCH ×2 (08:56→17:01)
[2017-03-19] MEDS: MUPIROCIN OINT 2% 22 GM TUBE SCH ×2 (08:56→16:51)
[2017-03-19] MEDS: CLOTRIMAZOLE 1% 15 GM TUBE TP SCH ×2 (08:58→16:51)
--- NOTE | 2017-03-19 09:30 | NUR ---
MS RN NOTES DUE MEDS GIVE. DC TELEMETRY PER DR. AGGARWAL. PATIENT REFUSED TO TAKE KLONOPIN.
--- NOTE | 2017-03-19 11:38 | NUR ---
MS RN NOTES ACCUCHECK. BS 117 MG/GL. NO INSULIN COVERAGE AT THIS TIME.
--- NOTE | 2017-03-19 12:39 | NUR ---
RT INCREASE MASK BACK TO 8L PT SAT 89% ON 6L Addendum: 03/19/17 at 1240 by MANNY COPE RT Amended: Links added.
[2017-03-19 16:00] VITALS: BP_SYST 159; BP_DIAS 75; BP_DIAS 79
--- NOTE | 2017-03-19 16:02 | NUR ---
RT PT SAT 98% WHEN SITTING DOWN AND 90% LYING DOWN PLACED PT ON 6L SITTING AND 10L LYING DOWN Addendum: 03/19/17 at 1603 by MANNY COPE RT Amended: Links added.
[2017-03-19] MEDS: RIVAROXABAN 15 MG TABLET PO SCH (16:44)
[2017-03-19] MEDS: INSULIN REGULAR, HUMAN 100 UNIT/ML 3 ML VIAL SQ PRN (16:53)
--- NOTE | 2017-03-19 17:03 | NUR ---
MS RN NOTES ACCUCHECK. BS 160 MG/GL. 2 UNITS HUM R PER SS + 45 U INSULIN NPH [SCHEDULED] GIVEN. PATIENT GOING TO EAT DINNER NOW.
[2017-03-19 18:00] VITALS: BP 159/79
--- NOTE | 2017-03-19 18:29 | NUR ---
MS RN CLOSING NOTES PT IN BED.RESTING COMFORTABLY, AA/O X4, ON O2 MASK AT 6-8 LPM, NOT IN ANY DISTRESS, NO SOB, RESPIRATION UNLABORED, R WRIST G20 IVHL, FLUSHES WELL, SITE CLEAR. CARMONA CATHETER IN PLACE WITH ADEQUATE AMOUNT YELLOW URINE OUTPUT. BEDBOUND, CARDIAC CCHO DIET, BED LOW/LOCKED POSITION, CALL LIGHT WITHIN REACH. ALL NEEDS MET, PM CARE, WILL ENDORSE TO NEXT SHIFT FOR CRISTIAN.
--- NOTE | 2017-03-19 19:30 | NUR ---
MORTGAGE PROFESSIONAL OPENING NOTES RECEIVED PT SITTING ON EDGE OF THE BED. NO SIGNS OF SOB OR DISTRESS. A/O X4 ABLE TO MAKE NEEDS KNOWN. ON MASK 8L, BREATHING EVENLY AND UNLABORED. R WRIST IV ON SL. CARMONA CATHETER IN PLACE WITH 100 CC CLEAR AND YELLOW URINE IN THE BAG. BED IS IN LOW AND LOCKED POSITION, CALL LIGHT WITHIN REACH. WILL CONTINUE TO MONITOR PT
[2017-03-19 20:00] VITALS: BP 135/78
[2017-03-20] MEDS: BLOOD SUGAR DIAGNOSTIC 1 EACH STRIP VI SCH ×4 (06:01→21:32)
[2017-03-20] MEDS ORDERED: Z GUARD REMEDY 2 OZ OINT TP PRN (07:00)
--- NOTE | 2017-03-20 07:27 | NUR ---
VACATION PLANNER CLOSING NOTES PT IS IN BED RESTING WITH CPAP ON. CONTACT ISOLATION FOR MRSA NARES. NO ACUTE CHANGES DURING MY SHIFT. IV ACCESS IS INTACT AND PATENT. BED IS IN LOW AND LOCKED POSITION, CALL LIGHT WITHIN REACH. WILL ENDORSE TO DAY SHIFT.
[2017-03-20] MEDS: ALBUTEROL FS 2.5 MG/3 ML VIAL.NEB NEB SCH ×4 (07:30→19:41)
[2017-03-20] MEDS: clonazePAM 1 MG TABLET PO SCH ×3 (07:30→16:59)
--- NOTE | 2017-03-20 07:30 | NUR ---
MS RN AM NOTES PT IN BED. AA/O X4, ON O2 MASK AT 6-8 LPM, NOT IN ANY DISTRESS, NO SOB, RESPIRATION UNLABORED, R WRIST G20 IVHL, FLUSHES WELL, SITE CLEAR. CARMONA CATHETER IN PLACE WITH 250 ML CLEAR AND YELLOW URINE. SEE NURSING FLOWSHEET FOR SKIN ISSUES. BEDBOUND, CARDIAC CCHO DIET, BED LOW/LOCKED POSITION, CALL LIGHT WITHIN REACH. WILL CONTINUE TO MONITOR PT
[2017-03-20 08:00] VITALS: BP 131/64
[2017-03-20] MEDS: NYSTATIN TOP POWDER 15 GM BOTTLE TP SCH (09:00)
[2017-03-20] MEDS: INSULIN NPH, HUMAN ISOPHANE 100 UNIT/ML VIAL SQ SCH ×2 (09:00→17:01)
[2017-03-20] MEDS: VENLAFAXINE 25 MG TABLET PO SCH ×2 (09:18→16:52)
[2017-03-20] MEDS: DILTIAZEM HCL CD 240 MG PO SCH (09:18)
[2017-03-20] MEDS: LEVOFLOXACIN (500MG) 500 MG TABLET PO SCH (09:19)
[2017-03-20] MEDS: FERROUS SULFATE (325 MG) 325 MG/TAB TABLET PO SCH ×2 (09:19→16:52)
[2017-03-20] MEDS: HYDROCHLOROTHIAZIDE 25 MG TABLET PO SCH (09:19)
[2017-03-20] MEDS: Z GUARD REMEDY 2 OZ OINT TP SCH (09:20)
[2017-03-20] MEDS: MUPIROCIN OINT 2% 22 GM TUBE SCH ×2 (09:25→16:59)
[2017-03-20] MEDS: CLOTRIMAZOLE 1% 15 GM TUBE TP SCH ×2 (09:26→16:59)
--- NOTE | 2017-03-20 09:30 | NUR ---
MS RN NOTES DUE MEDS GIVEN.
--- NOTE | 2017-03-20 10:24 | NUR ---
WOUND CARE CONSULT: PT FOLLOWED BY SURGICAL TEAM FOR SKIN. DEFER TO SURGICAL TEAM FOR SKIN/WOUND TREATMENT PLAN. PT HAS CURRENT RADHA SCORE OF 14. PT STATES IS COMFORTABLE ON HER JACK COMFORT GEL MATTRESS AND REFUSES BARIATRIC BED. WILL SEE PRN. IN AGREEMENT WITH PLAN OF CARE.
--- NOTE | 2017-03-20 11:45 | NUR ---
MS RN NOTES ACCUCHECK. BS 127 MG/GL. NO INSULIN COVERAGE AT THIS TIME.
[2017-03-20 11:52] LABS: BASOPHILS % (AUTO) 0.6 % (0.0-2.0); EOSINOPHILS # (AUTO) 0.2 /CMM (0.0-0.7); EOSINOPHILS % (AUTO) 3.1 % (0.0-6.0); HEMATOCRIT 28 % (33-45); HEMOGLOBIN 8.7 g/dL (11.5-14.8); LYMPHOCYTES # (AUTO) 1.2 /CMM (0.8-4.8); LYMPHOCYTES % (AUTO) 15.7 % (20.0-44.0); MEAN CORPUSCULAR HEMOGLOBIN 25 PG (26.0-33.0); MEAN CORPUSCULAR HGB CONC 31 g/dl (31.0-36.0); MEAN CORPUSCULAR VOLUME 82 fL (82-100); MONOCYTES # (AUTO) 0.4 /CMM (0.1-1.30); MONOCYTES % (AUTO) 5.1 % (2.0-12.0); NEUTROPHILS # (AUTO) 5.6 /CMM (1.8-8.9); NEUTROPHILS % (AUTO) 75.5 % (43.0-81.0); PLATELET COUNT (AUTO) 319 /CMM (150-450); RED BLOOD CELL COUNT(AUTO) 3.45 MIL/uL (4.0-5.2); WHITE BLOOD COUNT (AUTO) 7.4 K/uL (4.3-11.0)
[2017-03-20 11:55] LABS: CALCIUM, SERUM 8.9 mg/dL (8.5-10.1); CREATININE 2.2 mg/dL (0.6-1.3); POTASSIUM 4.4 mmol/L (3.5-5.1)
[2017-03-20 16:00] VITALS: BP 132/82
--- NOTE | 2017-03-20 16:41 | NUR ---
RT GAVE PT TX ELGIN WELL NO RESP DISTRESS NOTED ATT PT SAT 100% ON 6L MASK TITRATED DOWN TO 4L NASAL CANNULA SAT SAT 96% WILL CONTINUE TO MONITOR INFORMED NURSE Addendum: 03/20/17 at 1643 by MANNY COPE RT Amended: Links added.
--- NOTE | 2017-03-20 16:52 | NUR ---
MS RN NOTES ACCUCHECK. BS 122 MG/GL. NO INSULIN COVERAGE AT THIS TIME.
[2017-03-20] MEDS: RIVAROXABAN 15 MG TABLET PO SCH (16:53)
[2017-03-20 18:00] VITALS: BP 132/82
--- NOTE | 2017-03-20 18:25 | NUR ---
MS RN CLOSING NOTES PT IN BED.RESTING COMFORTABLY, AA/O X4, ON O2 2L NC, NOT IN ANY DISTRESS, NO SOB, RESPIRATION UNLABORED, R WRIST G20 IVHL, FLUSHES WELL, SITE CLEAR. CARMONA CATHETER IN PLACE WITH ADEQUATE AMOUNT YELLOW URINE OUTPUT. BEDBOUND, CARDIAC CCHO DIET, BED LOW/LOCKED POSITION, CALL LIGHT WITHIN REACH. ALL NEEDS MET, PM CARE, WILL ENDORSE TO NEXT SHIFT FOR CRISTIAN.
--- NOTE | 2017-03-20 19:30 | NUR ---
MS RN NOTES RECEIVED A/O X4,SITTING ON BEDSIDE CHAIR,NO SOB,TURBO OPERATOR AT BEDSIDE CHECKING VITAL SIGNS,RT AT BEDSIDE TO ADMINISTER DUE BREATHING TREATMENT.PATIENT CLAIMED 'I FEELS MUCH BETTER".WITH RIGHT WRIST SALINE LOCK #22 INTACT AND PATENT.ISOLATION PRECAUTION FOR MRSA NARES.OBESE,WITH CARMONA CATH IN PLACE DRAINING YELLOWISH OUTPUT.CALL LIGHT IN REACH,WILL CONTINUE TO MONITOR STATUS.
[2017-03-20 20:00] VITALS: BP 130/60
--- NOTE | 2017-03-20 21:45 | NUR ---
MS RN NOTES ACCU-CHECK BLOOD SUGAR CHECK 126,NO INSULIN COVERAGE.
--- NOTE | 2017-03-21 | NUR ---
MS RN NOTES RT AT BEDSIDE,ADMINISTERING BREATHING TX SCHEDULED. ON BIPAP AFTER TX PER PATIENT REQUEST
--- NOTE | 2017-03-21 03:00 | NUR ---
MS RN NOTES SOUND ASLEEP,KEPT WARM AND COMFORTABLE.
[2017-03-21] MEDS: BLOOD SUGAR DIAGNOSTIC 1 EACH STRIP VI SCH ×3 (06:11→17:51)
--- NOTE | 2017-03-21 06:21 | NUR ---
MS RN NOTES ACCU-CHECK BLOOD SUGAR CHECK 116,NO INSULIN COVERAGE.ALERT X4. SLEPT WELL,BIPAP TOLERATED WELL.IN NO ACUTE DISTRESS.CALL LIGHT IN REACH,NEEDS ATTENDED
[2017-03-21 06:56] LABS: BASOPHILS % (AUTO) 0.5 % (0.0-2.0); EOSINOPHILS # (AUTO) 0.3 /CMM (0.0-0.7); EOSINOPHILS % (AUTO) 4.4 % (0.0-6.0); HEMATOCRIT 26 % (33-45); HEMOGLOBIN 8.2 g/dL (11.5-14.8); LYMPHOCYTES # (AUTO) 1.2 /CMM (0.8-4.8); LYMPHOCYTES % (AUTO) 18.8 % (20.0-44.0); MEAN CORPUSCULAR HEMOGLOBIN 26 PG (26.0-33.0); MEAN CORPUSCULAR HGB CONC 32 g/dl (31.0-36.0); MEAN CORPUSCULAR VOLUME 81 fL (82-100); MONOCYTES # (AUTO) 0.5 /CMM (0.1-1.30); MONOCYTES % (AUTO) 7.4 % (2.0-12.0); NEUTROPHILS # (AUTO) 4.6 /CMM (1.8-8.9); NEUTROPHILS % (AUTO) 68.9 % (43.0-81.0); PLATELET COUNT (AUTO) 319 /CMM (150-450); RDW COEFFICIENT OF VARIATION 18.5 (11.5-15.0); RED BLOOD CELL COUNT(AUTO) 3.17 MIL/uL (4.0-5.2); WHITE BLOOD COUNT (AUTO) 6.6 K/uL (4.3-11.0)
[2017-03-21 07:10] LABS: CALCIUM, SERUM 8.7 mg/dL (8.5-10.1); MAGNESIUM 2.5 mg/dL (1.8-2.4); PHOSPHORUS 4.6 mg/dL (2.5-4.9); POTASSIUM 4.4 mmol/L (3.5-5.1)
--- NOTE | 2017-03-21 07:30 | NUR ---
MS RN INITIAL NOTES RECEIVED PT IN BED ALERT AWAKE VERBALLY RESPONSIVE.ON O2 4L O2 SAT 99% NO SOB, NO APPARENT DISTRESS NOTED. DENIES ANY PAIN OR DISCOMFORT AT THIS TIME. F/C IN PLACE, PATENT DRAINING YELLOW COLOR URINE. IV SITE INTACT, PATENT. CALL LIGHT WITHIN REACH. WILL CONTINUE TO MONITOR ACCORDINGLY
[2017-03-21] MEDS: ALBUTEROL FS 2.5 MG/3 ML VIAL.NEB NEB SCH ×2 (07:43→11:22)
[2017-03-21 08:00] VITALS: BP 137/86
[2017-03-21] MEDS: clonazePAM 1 MG TABLET PO SCH ×3 (08:29→17:30)
[2017-03-21] MEDS: FERROUS SULFATE (325 MG) 325 MG/TAB TABLET PO SCH ×2 (08:32→17:51)
[2017-03-21] MEDS: HYDROCHLOROTHIAZIDE 25 MG TABLET PO SCH (08:32)
[2017-03-21] MEDS: LEVOFLOXACIN (500MG) 500 MG TABLET PO SCH (08:32)
[2017-03-21] MEDS: DILTIAZEM HCL CD 240 MG PO SCH (08:32)
[2017-03-21] MEDS: VENLAFAXINE 25 MG TABLET PO SCH ×2 (08:37→17:51)
[2017-03-21] MEDS: NYSTATIN TOP POWDER 15 GM BOTTLE TP SCH (08:37)
[2017-03-21] MEDS: INSULIN NPH, HUMAN ISOPHANE 100 UNIT/ML VIAL SQ SCH ×2 (08:48→17:53)
[2017-03-21] MEDS: MUPIROCIN OINT 2% 22 GM TUBE SCH ×2 (08:52→17:57)
[2017-03-21] MEDS: CLOTRIMAZOLE 1% 15 GM TUBE TP SCH ×2 (08:53→17:57)
[2017-03-21] MEDS: Z GUARD REMEDY 2 OZ OINT TP SCH (08:53)
--- NOTE | 2017-03-21 09:30 | NUR ---
MS HINSON BREAKFAST SERVED,DUE MEDS GIVEN,TOLERATED WELL.
[2017-03-21 10:00] VITALS: BP 137/86
[2017-03-21] MEDS ORDERED: IPRA0.2S49 NEB (12:02)
[2017-03-21] MEDS ORDERED: LEVO500T15 PO (12:02)
[2017-03-21] MEDS ORDERED: FERR325T28 PO (12:02)
[2017-03-21] MEDS ORDERED: NYST30PO9 TP (12:02)
[2017-03-21] MEDS ORDERED: ALLA266C2 TP (12:02)
[2017-03-21] MEDS ORDERED: BUME1TAB4 PO (12:06)
--- NOTE | 2017-03-21 15:00 | NUR ---
MS RN PATIENT TO BE DISCHARGE, REFUSED TO TAKE BY AMBULANCE DUE TO 105 HR, TEXT JANNIE W/ ORDERS MADE AND CARRIED OUT, AMBULANCE WILL BE BACK.
[2017-03-21] MEDS ORDERED: METOPROLOL SUCCINATE 25 MG TAB.SR.24H PO STA (15:18)
[2017-03-21 16:00] VITALS: BP 136/55
--- NOTE | 2017-03-21 16:00 | NUR ---
MS SYSTEM SUPPORT TECHNICIAN PICTURES TAKEN ,PATIENT REFUSED TO TAKE PICTURES ON HER GROIN, ONLY FEET TAKEN,ALL NEEDS ATTENDED.
[2017-03-21] MEDS: RIVAROXABAN 15 MG TABLET PO SCH (17:52)
[2017-03-21] MEDS: *INSULIN REGULAR(HUMULIN R)HUM 100 UNIT/ML VIAL SQ PRN (17:54)
--- NOTE | 2017-03-21 18:20 | NUR ---
MS FASHION CONSULTANT NOTES PT DISCHARGED IN STABLE CONDITION, ALERT, AWAKE, VERBALLY RESPONSIVE. ON O2 VIA NASAL CANULA 4L/M, NO SOB,NO APPARENT DISTRESS NOTED. O2 SAT 98%. IV ACCESS DISCONTINUED, TOLERATED WELL, NO BLEEDING NOTED. DISCHARGE INSTRUCTIONS GIVEN TO THE PT, VERBALIZED UNDERSTANDING.PT LEFT THE HOSPITAL IN STABLE CONDITION, ACCOMPANIED BY [facility] AM[facility]ULANCE PERSONNEL AND ONE RT. ATTENDED ALL PT NEEDS. NOTIFIED
== END 2017-03-21 18:30 | DRG 291 ==
LOC: ER 22:23 → TELE 03-17 00:50 → MED 03-19 11:56
PROVIDERS: ADMIT Internal Medicine; ATTEND Internal Medicine
PROC: 5A09357 Assistance with Respiratory Ventilation, Less than 24 Consecutive Hours, Continuous Positive Airway Pressure (ICD-10-PCS; principal; 2017-03-17)
DX: I13.0 Hypertensive heart and chronic kidney disease with heart failure and stage 1 through stage 4 chronic kidney disease, or unspecified chronic kidney disease (principal); I50.33 Acute on chronic diastolic (congestive) heart failure; N17.0 Acute kidney failure with tubular necrosis; E43 Unspecified severe protein-calorie malnutrition; J96.01 Acute respiratory failure with hypoxia; J96.02 Acute respiratory failure with hypercapnia; D68.59 Other primary thrombophilia; E11.22 Type 2 diabetes mellitus with diabetic chronic kidney disease; D69.2 Other nonthrombocytopenic purpura; N18.4 Chronic kidney disease, stage 4 (severe); E66.2 Morbid (severe) obesity with alveolar hypoventilation; M86.9 Osteomyelitis, unspecified; Z68.44 Body mass index [BMI] 60.0-69.9, adult; N39.0 Urinary tract infection, site not specified; J44.1 Chronic obstructive pulmonary disease with (acute) exacerbation; J44.0 Chronic obstructive pulmonary disease with (acute) lower respiratory infection; J98.11 Atelectasis; E11.42 Type 2 diabetes mellitus with diabetic polyneuropathy; E11.51 Type 2 diabetes mellitus with diabetic peripheral angiopathy without gangrene; E11.69 Type 2 diabetes mellitus with other specified complication; Z79.01 Long term (current) use of anticoagulants; I11.0 Hypertensive heart disease with heart failure; E78.5 Hyperlipidemia, unspecified; Z99.3 Dependence on wheelchair; Z90.49 Acquired absence of other specified parts of digestive tract; Z87.891 Personal history of nicotine dependence; Z83.3 Family history of diabetes mellitus; Z79.899 Other long term (current) drug therapy; Z79.4 Long term (current) use of insulin; N18.9 Chronic kidney disease, unspecified; Z88.8 Allergy status to other drugs, medicaments and biological substances; I77.1 Stricture of artery; E11.65 Type 2 diabetes mellitus with hyperglycemia; D50.9 Iron deficiency anemia, unspecified; I27.20 Pulmonary hypertension, unspecified; I48.0 Paroxysmal atrial fibrillation; J20.9 Acute bronchitis, unspecified; L60.3 Nail dystrophy; L60.0 Ingrowing nail; I87.8 Other specified disorders of veins; L30.4 Erythema intertrigo
CPT/HCPCS: 36415; 71010-TC; 80048-TC; 80053-TC; 80061-TC; 80076-TC; 82550-TC; 82962-TC; 83540-TC; 83605-TC; 83735-TC; 83880; 84100-TC; 84484-TC; 85025-TC; 85730-TC; 87040-TC; 87081-TC; 94660; 94799-TC; A4606; J1815; J3490; J7060; Z7610

== ENCOUNTER 2017-06-13 13:35 | Inpatient (IN) | payer MEDICARE ==
[2017-06-13] VITALS (7 sets, daily range): BP systolic 109–150; BP diastolic 47–96
[~2017-06-13] VITALS: Ht 162.6 cm; Wt 144.4 kg
[~2017-06-13 13:35] MED LIST changes: +ALLA266C2 TP; +BUME1TAB4 PO; +FERR325T28 PO; +IPRA0.2S49 NEB; +LEVO500T2 PO; -LEVO750T21 PO; +NYST15PO4 TP
--- NOTE | 2017-06-13 14:10 | NUR ---
PT CAME IN WITH C/O SOB. SATING AT 68% RA. AT BS FOR EVAL. PLACED ON NONREBREATHER. PT AAOX3. OTHER VSS. USES ELECTRIC WHEELCHAIR. SAFETY AND COMFORT MEASURES PROVUIDED. WILL MONITOR.
--- NOTE | 2017-06-13 14:30 | NUR ---
IV ACCESS STARTED. SYSTEMS LEAD AT FOR BLOOD DRAW. MEDICATED ORDERED.
[2017-06-13] MEDS ORDERED: NTG 50 MG/D5W250 ML BOTTL 250 ML IV ONE (15:00)
[2017-06-13 15:08] LABS: BASOPHILS % (AUTO) 0.5 % (0.0-2.0); EOSINOPHILS # (AUTO) 0.4 /CMM (0.0-0.7); EOSINOPHILS % (AUTO) 4.1 % (0.0-6.0); HEMATOCRIT 31 % (33-45); LYMPHOCYTES # (AUTO) 1.6 /CMM (0.8-4.8); LYMPHOCYTES % (AUTO) 16.9 % (20.0-44.0); MEAN CORPUSCULAR HEMOGLOBIN 27 PG (26.0-33.0); MEAN CORPUSCULAR HGB CONC 32 g/dl (31.0-36.0); MEAN CORPUSCULAR VOLUME 85 fL (82-100); MONOCYTES # (AUTO) 0.5 /CMM (0.1-1.30); MONOCYTES % (AUTO) 5.2 % (2.0-12.0); NEUTROPHILS % (AUTO) 73.3 % (43.0-81.0); PLATELET COUNT (AUTO) 440 /CMM (150-450); RED BLOOD CELL COUNT(AUTO) 3.64 MIL/uL (4.0-5.2); WHITE BLOOD COUNT (AUTO) 9.5 K/uL (4.3-11.0)
[2017-06-13] MEDS ORDERED: FUROSEMIDE 40 MG/4 ML VIAL ONE (15:14)
[2017-06-13 15:22] LABS: INR 1.03 (0.85-1.15)
[2017-06-13] MEDS ORDERED: CRANBERRY 8400 MG PO (15:22)
[2017-06-13] MEDS ORDERED: CALC-246 PO (15:22)
[2017-06-13] MEDS ORDERED: FURO20TA4 PO (15:22)
[2017-06-13] MEDS ORDERED: ASPI-992 PO (15:22)
[2017-06-13] MEDS ORDERED: AMLO5TAB2 PO (15:22)
[2017-06-13] MEDS ORDERED: LOPE2CAP40 PO (15:24)
[2017-06-13 15:30] LABS: B-TYPE NATRIURETIC PEPTIDE 3517 PG/ML (0-125)
[2017-06-13] MEDS ORDERED: FUROSEMIDE 40 MG/4 ML VIAL IV ONE ×2 (15:30→17:00)
[2017-06-13 15:47] LABS: TROPONIN I < 0.017 ng/mL (0.00-0.056)
[2017-06-13 15:50] LABS: CALCIUM, SERUM 8.9 mg/dL (8.5-10.1); CREATININE 1.8 mg/dL (0.6-1.3); POTASSIUM 4.7 mmol/L (3.5-5.1)
[2017-06-13 15:55] LABS: ALBUMIN 2.6 g/dL (3.4-5.0); BILIRUBIN,TOTAL 0.3 mg/dL (0.2-1.0); TOTAL PROTEIN, SERUM 7.5 g/dL (6.4-8.2)
--- NOTE | 2017-06-13 16:42 | NUR ---
ADDITIONAL FUROSEMIDE 40 MG IVP HELD BY DR PETE. HE SAID THAT IF SHE DOESN'T DIURESE IN 2 HR, GIVE THE ADDITIONAL LASIX 40 IVP ORDERED.
--- NOTE | 2017-06-13 16:50 | NUR ---
REPORT GIVEN TO MATT HINSON FOR ICU 263.
[2017-06-13] MEDS ORDERED: DEXTROSE 50%-WATER 50 ML DISP.SYRIN IV PRN (18:00)
[2017-06-13] MEDS ORDERED: INSULIN REGULAR, HUMAN 100 UNIT/ML 3 ML VIAL SQ PRN (18:00)
[2017-06-13] MEDS ORDERED: *INSULIN REGULAR(HUMULIN R)HUM 100 UNIT/ML VIAL SQ PRN (18:00)
[2017-06-13] MEDS: METOPROLOL SUCCINATE 50 MG TAB.SR.24H PO SCH (19:18)
[2017-06-13] MEDS: FUROSEMIDE 40 MG/4 ML VIAL IV SCH (19:19)
[2017-06-13] MEDS: PANTOPRAZOLE 40 MG TABLET.DR PO SCH (19:19)
[2017-06-13] MEDS: VENLAFAXINE 37.5 MG TABLET PO SCH (19:19)
[2017-06-13] MEDS: POTASSIUM CHLORIDE 20 MEQ TAB.PRT.SR PO SCH (19:19)
[2017-06-13] MEDS: BLOOD SUGAR DIAGNOSTIC 1 EACH STRIP VI SCH ×2 (19:20→22:32)
[2017-06-13] MEDS: ASPIRIN 325 MG TABLET PO SCH (19:24)
[2017-06-13] MEDS: AMLODIPINE BESYLATE 5 MG TABLET PO SCH (19:24)
--- NOTE | 2017-06-13 19:46 | NUR ---
[employer]. admission. RECEIVED THE PT FROM ER VIA [facility]. ROOM 263. ADMITTING DIAGNOSIS IS CHF. PT AWAKE, ALERT, FOLLOW COMMANDS. 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 IV RT NAD LT HAND 18G, OXYGEN NONREBREATHER. SAT 95%, HAYLEY LOWE EXTREMITY SWOLLEN. HOB ELEVATED, WILL CONTINUE TO MONITOR VITALS.
[2017-06-13] MEDS ORDERED: LEVALBUTEROL HCL NEB 1.25 MG/0.5 ML VIAL.NEB NEB PRN (22:00)
[2017-06-13] MEDS: INSULIN GLARGINE, 100 UNIT/ML CARTRIDGE SQ SCH (22:25)
[2017-06-13] MEDS: HEPARIN SODIUM, PORCINE 5000 UNITS/1 ML VIAL SQ SCH (22:26)
[2017-06-13] MEDS ORDERED: IPRATROPIUM NEB FS 0.5 MG/2.5 ML AMPUL.NEB ONE (22:39)
[2017-06-13] MEDS: IPRATROPIUM NEB FS 0.5 MG/2.5 ML AMPUL.NEB NEB SCH (22:43)
[2017-06-14] VITALS (17 sets, daily range): BP systolic 73–130; BP diastolic 29–96
--- NOTE | 2017-06-14 03:42 | NUR ---
METHODS AND PROCEDURES ANALYST. AM CARE, ORAL CARE, BED BATH GIVEN. LINEN CHANGED, REMAINING SAME OXYGEN NON REBREATHER TOLERATED WELL. JAWBONE BREAKER SHOWING AFIB, HOB ELEVATED, TURN AND REPOSITION PT INDEPENDENT, WILL CONTINUE TO MONITOR VITALS,
[2017-06-14 05:23] LABS: BASOPHILS # (AUTO) 0.1 /CMM (0.0-0.2); BASOPHILS % (AUTO) 0.7 % (0.0-2.0); EOSINOPHILS # (AUTO) 0.4 /CMM (0.0-0.7); EOSINOPHILS % (AUTO) 5.4 % (0.0-6.0); HEMATOCRIT 28 % (33-45); HEMOGLOBIN 9.1 g/dL (11.5-14.8); LYMPHOCYTES # (AUTO) 1.8 /CMM (0.8-4.8); LYMPHOCYTES % (AUTO) 23.6 % (20.0-44.0); MEAN CORPUSCULAR HEMOGLOBIN 28 PG (26.0-33.0); MEAN CORPUSCULAR HGB CONC 33 g/dl (31.0-36.0); MEAN CORPUSCULAR VOLUME 86 fL (82-100); MONOCYTES # (AUTO) 0.5 /CMM (0.1-1.30); MONOCYTES % (AUTO) 6.7 % (2.0-12.0); NEUTROPHILS # (AUTO) 4.7 /CMM (1.8-8.9); NEUTROPHILS % (AUTO) 63.6 % (43.0-81.0); PLATELET COUNT (AUTO) 402 /CMM (150-450); RED BLOOD CELL COUNT(AUTO) 3.27 MIL/uL (4.0-5.2); WHITE BLOOD COUNT (AUTO) 7.4 K/uL (4.3-11.0)
[2017-06-14 05:49] LABS: ALANINE AMINOTRANSFERASE 10 U/L (12-78); ALBUMIN 2.4 g/dL (3.4-5.0); ALKALINE PHOSPHATASE 78 U/L (46-116); ASPARTATE AMINOTRANSFERASE 11 U/L (15-37); BILIRUBIN,TOTAL 0.3 mg/dL (0.2-1.0); CALCIUM, SERUM 8.7 mg/dL (8.5-10.1); CARBON DIOXIDE 28 mmol/L (21-32); CHLORIDE 110 mmol/L (98-107); CHOLESTEROL 144 mg/dL (<200); CREATININE 1.7 mg/dL (0.6-1.3); GLUCOSE 131 mg/dL (74-106); HDL CHOLESTEROL 42 mg/dL (40-60); LDL 92 mg/dL (0-99); POTASSIUM 5.2 mmol/L (3.5-5.1); SODIUM SERUM 144 mmol/L (136-145); TOTAL PROTEIN, SERUM 6.7 g/dL (6.4-8.2); TRIGLYCERIDES 89 mg/dL (30-150); TROPONIN I < 0.017 ng/mL (0.00-0.056); UREA NITROGEN, BLOOD 44 mg/dL (7-18)
[2017-06-14] MEDS: IPRATROPIUM NEB FS 0.5 MG/2.5 ML AMPUL.NEB NEB SCH ×3 (07:42→19:44)
--- NOTE | 2017-06-14 08:00 | NUR ---
RN NOTE PATIENT RECEIVED IN STABLE CONDITION , NO SOB NOTED , IV CLEAN DRY INTACT PATIENT ABLE TO MAKE NEEDS KNOW AT THIS TIME PATIENT SAFTEY MEASURES IN PLACE
[2017-06-14] MEDS: PANTOPRAZOLE 40 MG TABLET.DR PO SCH (08:08)
[2017-06-14] MEDS: POTASSIUM CHLORIDE 20 MEQ TAB.PRT.SR PO SCH (08:08)
[2017-06-14] MEDS: BLOOD SUGAR DIAGNOSTIC 1 EACH STRIP VI SCH ×4 (08:09→22:00)
[2017-06-14] MEDS: VENLAFAXINE 37.5 MG TABLET PO SCH ×2 (08:09→17:57)
[2017-06-14] MEDS: FUROSEMIDE 40 MG/4 ML VIAL IV SCH ×2 (08:09→17:57)
[2017-06-14] MEDS: AMLODIPINE BESYLATE 5 MG TABLET PO SCH (08:09)
[2017-06-14] MEDS: ASPIRIN 325 MG TABLET PO SCH (08:09)
[2017-06-14] MEDS: HEPARIN SODIUM, PORCINE 5000 UNITS/1 ML VIAL SQ SCH (08:20)
[2017-06-14 09:20] LABS: ABG BASE EXCESS 1.1 mmol/L; ABG OXYGEN SATURATION 50.3 % (92.0-98.5); ABG PCO2 58.5 mmHg (35.0-45.0); ABG PH 7.303 (7.350-7.450); ABG PO2 28.7 mmHg (75.0-100.0); COHb 0.5 % (0.5-1.5); MetHb 0.4 % (0.0-1.5); O2Hb 49.8 % (94.0-97.0); VENT MODE, BG VENTURI MASK 50%
[2017-06-14] MEDS: APIXABAN 2.5 MG TABLET PO SCH ×2 (10:57→19:55)
[2017-06-14] MEDS: AMLODIPINE BESYLATE 2.5 MG TABLET PO SCH (14:00)
[2017-06-14] MEDS: METOPROLOL SUCCINATE 50 MG TAB.SR.24H PO SCH (18:04)
--- NOTE | 2017-06-14 19:26 | NUR ---
RN CLOSING NOT PATIENT REMAINS IN STABLE CONDTION PATIENT NEEDS ATTEND PATIENT REMAINS ON 15L MASK, NO CONCERNS NOTED AT THIS TIME RN CONTACTED PHARMACY X 2 IN REGARDS TO PATIENT ELIQUIS, CARE ENDORSED TO PM RN TO GIVE MEDICATION AND CONTACT PHARMACY IN REGARDS TO MEDICATION IF NOT OBTAINED WITH THE NEXT 1HR, RADHIKA RN ACKNOWLEDGED
--- NOTE | 2017-06-14 20:07 | NUR ---
RN NOTE RN CONTINUED HOME MEDICATIONS PM RN WILL CONTACT PHARMACY AND FAX RECONCILED MEDICATION FORM TO PHARMACY ACCORDINGLY
[2017-06-14] MEDS: INSULIN GLARGINE, 100 UNIT/ML CARTRIDGE SQ SCH (22:00)
[2017-06-15] VITALS: BP 120/71
[2017-06-15] MEDS: IPRATROPIUM NEB FS 0.5 MG/2.5 ML AMPUL.NEB NEB SCH ×4 (01:24→19:55)
[2017-06-15 04:00] VITALS: BP 120/71
[2017-06-15] MEDS: BLOOD SUGAR DIAGNOSTIC 1 EACH STRIP VI SCH ×4 (06:57→21:34)
[2017-06-15 08:00] VITALS: BP 129/63
[2017-06-15 08:01] LABS: BASOPHILS # (AUTO) 0.1 /CMM (0.0-0.2); BASOPHILS % (AUTO) 0.8 % (0.0-2.0); EOSINOPHILS # (AUTO) 0.5 /CMM (0.0-0.7); EOSINOPHILS % (AUTO) 5.8 % (0.0-6.0); HEMATOCRIT 29 % (33-45); HEMOGLOBIN 9.5 g/dL (11.5-14.8); LYMPHOCYTES # (AUTO) 1.6 /CMM (0.8-4.8); LYMPHOCYTES % (AUTO) 19.8 % (20.0-44.0); MEAN CORPUSCULAR HEMOGLOBIN 28 PG (26.0-33.0); MEAN CORPUSCULAR HGB CONC 33 g/dl (31.0-36.0); MEAN CORPUSCULAR VOLUME 85 fL (82-100); MONOCYTES # (AUTO) 0.6 /CMM (0.1-1.30); MONOCYTES % (AUTO) 7.1 % (2.0-12.0); NEUTROPHILS # (AUTO) 5.3 /CMM (1.8-8.9); NEUTROPHILS % (AUTO) 66.5 % (43.0-81.0); PLATELET COUNT (AUTO) 387 /CMM (150-450); RDW COEFFICIENT OF VARIATION 19.6 (11.5-15.0); RED BLOOD CELL COUNT(AUTO) 3.38 MIL/uL (4.0-5.2)
--- NOTE | 2017-06-15 08:08 | NUR ---
RN NOTE (INITIAL) PATIENT RECEIVED ALERT AWAKE ORIENTED X4. ABLE MAKE NEEDS KNOWN. ON 10 LPM O2 VIA SIMPLE MASK. NO BREATHING DIFFICULTY NOTED. ON TELE A-FIB CONTROLLED. DENIES PAIN & DISCOMFORT. IV SITE INTACT, SALINE LOCK. SAFETY MEASURES OBSERVED. CALL LIGHT WITHIN REACH. WILL CONTINUE TO MONITOR.
[2017-06-15 08:16] LABS: CALCIUM, SERUM 8.6 mg/dL (8.5-10.1); POTASSIUM 5.1 mmol/L (3.5-5.1)
[2017-06-15] MEDS: ASPIRIN 325 MG TABLET PO SCH (08:34)
[2017-06-15] MEDS: PANTOPRAZOLE 40 MG TABLET.DR PO SCH (08:34)
[2017-06-15] MEDS: VENLAFAXINE 37.5 MG TABLET PO SCH ×2 (08:34→17:36)
[2017-06-15] MEDS: FUROSEMIDE 40 MG/4 ML VIAL IV SCH ×2 (08:34→17:35)
[2017-06-15] MEDS: AMLODIPINE BESYLATE 2.5 MG TABLET PO SCH (08:35)
[2017-06-15] MEDS: APIXABAN 2.5 MG TABLET PO SCH ×2 (08:35→17:35)
[2017-06-15] MEDS ORDERED: AMLO2.5T PO (08:54)
[2017-06-15] MEDS ORDERED: METO50TA7 PO (08:54)
[2017-06-15] MEDS ORDERED: FURO-144 PO (08:54)
[2017-06-15] MEDS ORDERED: APIX2.5T PO (08:54)
--- NOTE | 2017-06-15 10:51 | NUR ---
WOUND CARE CONSULT WOUND CARE RECEIVED WOUND CONSULT FOR NEW ADMISSION. WOUND CARE WILL DEFER CONSULT AND ALL TREATMENT PLANS TO SURGICAL TEAM AT THIS TIME. PATIENT WITH RADHA AT 16. ALL PRESSURE ULCER PREVENTION MEASURES NOTED TO BE IN PLACE.
[2017-06-15] MEDS ORDERED: Z GUARD REMEDY 2 OZ OINT TP PRN (11:00)
--- NOTE | 2017-06-15 13:50 | NUR ---
RN NOTES: HOLD DISCHARGE TODAY CALLED DR. JIMENEZ MADE HIM AWARE THAT PT DESATURATES ON 4LPM O2 VIA NC 79-83%. AND HER DE IONIZER OPERATOR IS UNABLE TO BRING HOME OXYGEN TODAY. DR. JIMENEZ SAID SHE IS NOT READY TO GET DISCHARGE TODAY. PT IS AWARE. AGREE WITH PLAN.
[2017-06-15 16:00] VITALS: BP 151/89
[2017-06-15] MEDS: METOPROLOL SUCCINATE 50 MG TAB.SR.24H PO SCH (17:36)
--- NOTE | 2017-06-15 19:20 | NUR ---
MS RN NOTES RECEIVED PT SITTING UP IN BED, AWAKE, A/O X 4. VERBALLY RESPONSIVE. NO DISTRESS, NO SOB NOTED, PT ON 6LPM OF OXYGEN VIA NC, 02 SAT IS 94 %. PT DENIES ANY PAIN OR DISCOMFORT AT THIS TIME. IV SITE ON LEFT HAND AND RIGHT HAND INTACT AND PATENT, FLUSHED WITH NS, NO S/S OF INFILTRATION AT THIS TIME. SAFETY PRECAUTIONS OBSERVED. ALL NEEDS ATTENDED AND MET. KEPT COMFORTABLE. CALL LIGHT WITHIN REACH .W ILL CONT TO MONITOR.
[2017-06-15 20:00] VITALS: BP 149/98
[2017-06-15] MEDS: INSULIN GLARGINE, 100 UNIT/ML CARTRIDGE SQ SCH (21:34)
[2017-06-15 22:00] VITALS: BP 149/98
[2017-06-16] MEDS: IPRATROPIUM NEB FS 0.5 MG/2.5 ML AMPUL.NEB NEB SCH ×4 (01:05→19:15)
[2017-06-16 04:00] VITALS: BP 149/98
--- NOTE | 2017-06-16 06:55 | NUR ---
MS RN NOTES PT IN BED, RESTING COMFORTABLY AT THIS TIME, AROUSES EASILY. A/O X 4. VERBALLY RESPONSIVE. NO DISTRESS, NO SOB NOTED. PT DENIES ANY PAIN OR DISCOMFORT AT THIS TIME. IV SITE ON LEFT HAND AND RIGHT HAND INTACT AND PATENT, FLUSHED WITH NS, NO S/S OF INFILTRATION AT THIS TIME. SAFETY PRECAUTIONS OBSERVED. ALL NEEDS ATTENDED AND MET. KEPT COMFORTABLE. CALL LIGHT WITHIN REACH .WILL ENDORSE TO NEXT SHIFT FOR CRISTIAN..
[2017-06-16 07:17] LABS: BASOPHILS % (AUTO) 0.4 % (0.0-2.0); EOSINOPHILS # (AUTO) 0.4 /CMM (0.0-0.7); EOSINOPHILS % (AUTO) 5.9 % (0.0-6.0); HEMATOCRIT 31 % (33-45); HEMOGLOBIN 10.1 g/dL (11.5-14.8); LYMPHOCYTES # (AUTO) 1.5 /CMM (0.8-4.8); LYMPHOCYTES % (AUTO) 21.2 % (20.0-44.0); MEAN CORPUSCULAR HEMOGLOBIN 28 PG (26.0-33.0); MEAN CORPUSCULAR HGB CONC 33 g/dl (31.0-36.0); MEAN CORPUSCULAR VOLUME 85 fL (82-100); MONOCYTES # (AUTO) 0.5 /CMM (0.1-1.30); MONOCYTES % (AUTO) 6.5 % (2.0-12.0); NEUTROPHILS # (AUTO) 4.8 /CMM (1.8-8.9); PLATELET COUNT (AUTO) 412 /CMM (150-450); RDW COEFFICIENT OF VARIATION 19.3 (11.5-15.0); RED BLOOD CELL COUNT(AUTO) 3.62 MIL/uL (4.0-5.2); WHITE BLOOD COUNT (AUTO) 7.2 K/uL (4.3-11.0)
--- NOTE | 2017-06-16 07:30 | NUR ---
RN OPEN NOTES RECEIVED REPORT FROM ASSISTANT SALES MANAGER NURSE. PATIENT IS IN BED, WITH HER EYES CLOSED. EASILY AROUSED TO CALLING HER NAME. BED IN LOW POSITION LOCKED AND TWO SIDE RAILS ARE UP. CALL LIGHT WITHIN REACH FOR SAFETY. BREATHING IS BILATERALLY EVEN. NO SIGNS AND SYMPTOMS OF DISTRESS. WILL CONTINUE TO MONITOR AND ASSESS PATIENT
[2017-06-16 07:39] LABS: CALCIUM, SERUM 8.5 mg/dL (8.5-10.1); POTASSIUM 4.5 mmol/L (3.5-5.1)
[2017-06-16 08:00] VITALS: BP 139/59
[2017-06-16] MEDS: BLOOD SUGAR DIAGNOSTIC 1 EACH STRIP VI SCH ×3 (08:14→17:26)
[2017-06-16] MEDS: ASPIRIN 325 MG TABLET PO SCH (08:36)
[2017-06-16] MEDS: VENLAFAXINE 37.5 MG TABLET PO SCH ×2 (08:36→17:26)
[2017-06-16] MEDS: FUROSEMIDE 40 MG/4 ML VIAL IV SCH ×2 (08:36→16:46)
[2017-06-16] MEDS: APIXABAN 2.5 MG TABLET PO SCH ×2 (08:37→18:07)
[2017-06-16] MEDS: AMLODIPINE BESYLATE 2.5 MG TABLET PO SCH (08:37)
[2017-06-16] MEDS: PANTOPRAZOLE 40 MG TABLET.DR PO SCH (08:41)
[2017-06-16 16:00] VITALS: BP 135/60
[2017-06-16 17:36] VITALS: BP 135/60
[2017-06-16] MEDS: METOPROLOL SUCCINATE 50 MG TAB.SR.24H PO SCH (17:36)
--- NOTE | 2017-06-16 18:29 | NUR ---
RN CLOSING NOTES PT IN BED, RESTING COMFORTABLY AT THIS TIME, AROUSES EASILY. A/O X 4. VERBALLY RESPONSIVE. NO DISTRESS, NO SOB NOTED. PT DENIES ANY PAIN OR DISCOMFORT AT THIS TIME. SAFETY PRECAUTIONS OBSERVED. ALL NEEDS ATTENDED AND MET. KEPT COMFORTABLE. CALL LIGHT WITHIN REACH . PENDING DISCHARGE, WAITING FOR THE OXYGEN DELIVERY AND TAXI VOUCHER WILL PROVIDED. WILL ENDORSE TO MEDICAL ARTIST NURSE
--- NOTE | 2017-06-16 20:00 | NUR ---
RN INITIAL NOTES RECEIVED PT IN BED, RESTING COMFORTABLY AT THIS TIME. A/O X 4. VERBALLY RESPONSIVE. NO DISTRESS, NO SOB NOTED. PT DENIES ANY PAIN OR DISCOMFORT AT THIS TIME. SAFETY PRECAUTIONS OBSERVED. ALL NEEDS ATTENDED AND MET. KEPT COMFORTABLE. CALL LIGHT WITHIN REACH . PENDING DISCHARGE, WAITING FOR THE OXYGEN DELIVERY AND TAXI VOUCHER WILL PROVIDED. WILL CONT TO MONITOR.
--- NOTE | 2017-06-16 20:10 | NUR ---
RN NOTES OXYGEN DELIVERED, TAXI CALLED TO OUTBOUND CALL CENTER REPRESENTATIVE PT.
--- NOTE | 2017-06-16 20:35 | NUR ---
INDUSTRIAL FABRIC CUTTER NOTES DISCHARGE TEACHING WAS REENFORCED WITH PT, PT VERBALIZED UNDERSTANDING OF ALL INSTRUCTIONS. PT SIGNED DISCHARGED PAPER WORK. DISCHARGED PACKET GIVEN TO PT INCLUDING PRESCRIPTIONS AND TAXI VOUCHER. PT LEFT FLOOR VIA PERSONAL POWERED WHEEL CHAIR ACCOMPANIED BY ALMA, PT IS ON PORTABLE OXYGEN TANK 4L, ALL PERSONAL BELONGING WITH PT. TAXI IS AWAITING PT AT THE MAIN ENTRANCE TO TAKE PT TO HOME.
== END 2017-06-16 20:35 | disposition home or self-care (01) | DRG 291 ==
LOC: ER 13:38 → ICU 16:41 → TELE1 06-14 15:39 → MEDSG1 06-15 10:26
PROVIDERS: ADMIT Internal Medicine; ATTEND Internal Medicine
DX: I13.0 Hypertensive heart and chronic kidney disease with heart failure and stage 1 through stage 4 chronic kidney disease, or unspecified chronic kidney disease (principal); J96.01 Acute respiratory failure with hypoxia; J96.02 Acute respiratory failure with hypercapnia; E11.21 Type 2 diabetes mellitus with diabetic nephropathy; E11.22 Type 2 diabetes mellitus with diabetic chronic kidney disease; E11.42 Type 2 diabetes mellitus with diabetic polyneuropathy; D69.2 Other nonthrombocytopenic purpura; I50.33 Acute on chronic diastolic (congestive) heart failure; E66.2 Morbid (severe) obesity with alveolar hypoventilation; Z68.43 Body mass index [BMI] 50.0-59.9, adult; I27.20 Pulmonary hypertension, unspecified; I11.0 Hypertensive heart disease with heart failure; E11.51 Type 2 diabetes mellitus with diabetic peripheral angiopathy without gangrene; Z99.81 Dependence on supplemental oxygen; Z87.891 Personal history of nicotine dependence; Z83.3 Family history of diabetes mellitus; Z79.82 Long term (current) use of aspirin; Z79.4 Long term (current) use of insulin; Z88.1 Allergy status to other antibiotic agents; Z88.8 Allergy status to other drugs, medicaments and biological substances; Z79.899 Other long term (current) drug therapy; N18.9 Chronic kidney disease, unspecified; I87.2 Venous insufficiency (chronic) (peripheral); I70.0 Atherosclerosis of aorta; I48.0 Paroxysmal atrial fibrillation; F41.0 Panic disorder [episodic paroxysmal anxiety]; D64.9 Anemia, unspecified; Z89.429 Acquired absence of other toe(s), unspecified side
CPT/HCPCS: 36415; 36600; 71045-TC; 80048-TC; 80053-TC; 80061-TC; 82803-TC; 82962-TC; 83605-TC; 83880; 84484-TC; 85025-TC; 85730-TC; 87040-TC; 87081-TC; 94760-TC; 94762-TC; A4606; J1644; J1815; J1940; J7030; J7040; Z7610